=== PATIENT | female | born 1995 | race Caucasian/White ===

== ENCOUNTER 2018-01-13 12:29 | Emergency (ER) | payer MEDICAID, SELFPAY ==
[2018-01-13 12:30] VITALS: BP 119/69; PULSE 79; RESP 16; TEMP 36.6; O2SAT 97; BMI 28.0
--- NOTE | 2018-01-13 13:38 | ED.VISSUMM ---
- ER Visit Summary Date of Service: 01/13/18 Chief Complaint: [Right eye pain] History of Present Illness: The patient is a 22 F [since the emergency department with irritation and drainage in her right eye. It started last night. Was matted shut and she is cleared it for times of group. No acute visual changes. She has no pain. There is no injury. She has no foreign body sensation. No viral symptoms. No fevers or chills. She does not wear contacts or glasses. She did share makeup with her daughter who was recently treated for conjunctivitis.] Physical Examination: [] Afebrile vital signs within acceptable limits Examination of the right eye reveals mild conjunctival injection on the outer rim there is no foreign body eyelid was everted for exam pupils are equal and reactive extraocular eye movements are intact there is no visual owens deficits Test Results: [] Emergency Department Course and Treatment: [She will be given erythromycin ointment. She was given precautions for which to return. She was encouraged to follow-up with an farm consultant of her symptoms do not improve in 3-5 days.] Treatment Plan: [] Disposition: [disCharge Impression: [Right eye conjunctivitis] This note was generated with [employer]bee dictation software. It may contain incorrect words, spelling, and punctuation that were not noted in review of the chart prior to signing ED Disposition - Plan for ED Patient: Chief Complaint: Eye Problem Referrals: Care Physician,No Primary [Primary Care Provider] -
--- NOTE | 2018-01-13 13:41 | ED.DCSUM_ITS ---
- ER Visit Summary Date of Service: 01/13/18 Chief Complaint: [Right eye pain] History of Present Illness: The patient is a 22 F [since the emergency department with irritation and drainage in her right eye. It started last night. Was matted shut and she is cleared it for times of group. No acute visual changes. She has no pain. There is no injury. She has no foreign body sensation. No viral symptoms. No fevers or chills. She does not wear contacts or glasses. She did share makeup with her daughter who was recently treated for conjunctivitis.] Physical Examination: [] Afebrile vital signs within acceptable limits Examination of the right eye reveals mild conjunctival injection on the outer rim there is no foreign body eyelid was everted for exam pupils are equal and reactive extraocular eye movements are intact there is no visual owens deficits Test Results: [] Emergency Department Course and Treatment: [She will be given erythromycin ointment. She was given precautions for which to return. She was encouraged to follow-up with an marketing business analyst of her symptoms do not improve in 3-5 days. ] Treatment Plan: [] Disposition: [disCharge Impression: [Right eye conjunctivitis] This note was generated with [employer] dictation software. It may contain incorrect words, spelling, and punctuation that were not noted in review of the chart prior to signing ED Disposition - Plan for ED Patient: Chief Complaint: Eye Problem Referrals: Care Physician,No Primary [Primary Care Provider] -
--- NOTE | 2018-01-13 13:41 | ED.DEP ---
ED Disposition - Plan for ED Patient: Chief Complaint: Eye Problem Instructions: ED Conjunctivitis Bacterial Prescriptions: Erythromycin Ophthalmic 1 applic OPHTHALMIC 4X/DAY #1 opth.tube Referrals: Efe Reyes MD [STAFF PHYSICIAN] - 3-5 Days
== END 2018-01-13 14:00 | disposition home or self-care (01) ==
PROVIDERS: Emergency Provider Emergency Medicine
DX: H10.9 Unspecified conjunctivitis (principal)
CPT/HCPCS: 99282

== ENCOUNTER 2018-04-08 13:32 | Emergency (ER) | payer SELFPAY ==
[2018-04-08 13:33] VITALS: BP 116/62; PULSE 97; RESP 16; TEMP 37; O2SAT 100; BMI 29.6
[2018-04-08 14:32] LABS: Absolute Lymphocyte Count 2.81 X10^3/ul (0.83-4.51); Absolute Neutrophil Count 5.9 X10^3/uL (2.0-7.7); Basophil# 0.03 X10^3/uL; Basophil% 0.3 % (0-1); Eosinophil# 0.27 X10^3/uL; Eosinophils% 2.8 % (0-5); Hemoglobin 13.9 g/dl (12.0-15.0); Lymphocyte # 2.81 X10^3/ul (4.0); Lymphocyte % 29.4 % (19-41); Mean Corp Hgb Conc 33.1 g/gl (32-36); Mean Corpuscular Hgb 30.3 pg (27.0-32.0); Mean Corpuscular Volume 91.5 fL (81-99); Mean Platelet Vol. 9.9 fl (6.2-12.0); Monocyte# 0.48 X10^3/uL; Neutrophil # 5.94 X10^3/uL (2.7-7.7); Neutrophil % 62.3 % (47-70); Platelet Count 232 K/mm3 (150-450); RBC Distribution Width CV 13.1 % (11.6-14.6); RBC Distribution Width SD 43.3 fl (35.1-43.9); Red Blood Count 4.59 M/mm3 (4.2-5.4); White Blood Count 9.6 K/mm3 (4.4-11.0)
[2018-04-08 14:38] LABS: POSITIVE COUNT NO; POSITIVE DIFFERENTIAL NO; POSITIVE MORPHOLOGY NO
[2018-04-08 14:43] LABS: Anion Gap 5 (5-15); BUN 12 mg/dL (7-18); BUN/Creat Ratio 22.1 RATIO (10-20); Calcium,Total 8.7 mg/dL (8.5-10.1); Chloride 109 mmol/L (98-107); Creatinine, Serum 0.54 mg/dL (0.55-1.02); EST Glomerular Filtration Rate 149 mL/min (>60); Est Glom Filt Rate - Afr Amer 181 mL/min (>60); Estimated Creatinine Clearance 171.55 ml/min; Glucose 80 mg/dL (74-106); Potassium 4.1 mmol/L (3.5-5.1); Sodium Level 139 mmol/L (136-145)
[2018-04-08 14:52] LABS: Pregnancy, Serum, hCG Quali. NEGATIVE Negative (0-9 Nonpreg)
--- NOTE | 2018-04-08 14:52 | RAD_ITS ---
STUDY: X-RAY - ACUTE ABDOMINAL SERIES REASON FOR EXAM: Female, 23 years old. Abdominal cramping. TECHNIQUE: Single view of the chest. Supine, and erect view(s) of the abdomen were obtained. COMPARISON: None. FINDINGS: The lungs are clear and expanded. Normal size heart. Normal mediastinum and navneet. Normal visualized pulmonary arteries. Normal visualized aortic arch and descending thoracic aorta. There is a moderate amount of colonic fecal material. The soft tissue structures of the abdomen and pelvis are unremarkable. Normal visualized osseous structures. RAD/Acute Abdomen Inc Chest IMPRESSION: Moderate amount of fecal material is seen in the colon. Electronically Signed: Manjit Gonzalez MD at 15:18 EDT Tel [phone], Service support ,
[2018-04-08] MEDS: Dicyclomine 10 MG Capsule 20 MG PO (14:56)
--- NOTE | 2018-04-08 14:56 | ED.DCSUM_ITS ---
- ER Visit Summary Date of Service: 04/08/18 Chief Complaint: Abdominal cramping, constipation History of Present Illness: The patient is a 23 F presents to the emergency department with abdominal cramping. Patient states she started a new diet supplement. She has been taking multiple Garcinia tablets. She states she has not been drinking a lot of water. Last night, she began have diffuse abdominal cramping. States it comes in waves. She states he had a difficult time moving her bowels. She denies any fevers or chills. She denies any diarrhea. She has no history of prior abdominal surgery. The pain does not radiate. She has had no urinary difficulties. The pain does not go to her back. She has taken ibuprofen which has significantly improved the pain. Physical Examination: Vital signs reviewed General: Well-nourished, well-developed Head: Normocephalic, atraumatic Eyes: Pupils equal and reactive, extraocular muscles intact Neck, supple, no lymphadenopathy Heart: Regular rate and rhythm Respiratory: No distress, clear bilaterally Abdomen: Soft, nontender, nondistended, no peritoneal signs Back: Nontender Extremities: Nontender, no edema, no cords Skin: Normal color no rash Neuro: Alert and oriented, no focal or lateralizing deficits Test Results: [] Emergency Department Course and Treatment: I cannot re-create the patient's symptoms on examination. She has a benign abdomen. I do feel that a lot of this is because of her new diet supplement. I did obtain plain films and there is a decent amount of stool, but no obstruction or free air. Her labs are unremarkable. I have counseled the patient to stop her diet supplements. Her test is negative. She will be given Bentyl to help with the cramping and started on stool softener. The patient will be discharged home, return 24 hours if symptoms persist or return. Treatment Plan: [] Disposition: Discharge Impression: Abdominal pain 2. Constipation This note was generated with [employer] dictation software. It may contain incorrect words, spelling, and punctuation that were not noted in review of the chart prior to signing ED Disposition - Plan for ED Patient: Chief Complaint: Abd Pain Instructions: ED Constipation Prescriptions: Dicyclomine HCl [Bentyl] 20 mg PO TIDAC #20 cap Docusate Sodium [Colace] 100 mg PO DAILY #20 cap Referrals: Care Physician,No Primary [Primary Care Provider] -
== END 2018-04-08 15:34 | disposition home or self-care (01) ==
PROVIDERS: Emergency Provider Emergency Medicine
DX: R10.9 Unspecified abdominal pain (principal); K59.00 Constipation, unspecified
CPT/HCPCS: 74022; 80048; 84703; 85025; 99284

== ENCOUNTER 2018-04-19 16:49 | Emergency (ER) | payer MEDICAID, SELFPAY ==
[2018-04-19 16:50] VITALS: BP 107/87; PULSE 113; RESP 16; TEMP 36.4; O2SAT 99; BMI 29.5
== END 2018-04-19 17:58 | disposition left against medical advice (07) ==
LOC: ED 18:28
PROVIDERS: Emergency Provider Emergency Medicine
DX: R06.02 Shortness of breath (principal)

== ENCOUNTER 2019-03-03 12:46 | Emergency (ER) | payer MEDICAID, SELFPAY ==
[2019-03-03 12:47] VITALS: BP 133/71; PULSE 107; RESP 17; TEMP 37; O2SAT 98; BMI 34.0
--- NOTE | 2019-03-03 13:02 | EKG12_ITS ---
Test Reason : PALPS Blood Pressure : / mmHG Vent. Rate : 078 BPM Atrial Rate : 078 BPM P-R Int : 164 ms QRS Dur : 076 ms QT Int : 372 ms P-R-T Axes : 059 067 041 degrees QTc Int : 424 ms Normal sinus rhythm Normal ECG Confirmed by FAB CASTELLANOS, DEBBY ([id number]), subeditor DONOVAN WATSON ([id number]) on 03/05/2019 1:19:52 PM Referred By: WILIAN Confirmed By:DEBBY SANON MD
--- NOTE | 2019-03-03 13:03 | ED.VISSUMM ---
- ER Visit Summary Date of Service: 03/03/19 Chief Complaint: Palpitations History of Present Illness: The patient is a 23 F with no primary care physician. She reports that she has been taking Wellbutrin 150 mg once a day for the past 2 weeks. For the past 2 days she has had palpitations. She denies any chest pain or shortness of breath. She reports that she does feel very anxious. She denies any suicidal homicidal ideation. Patient reports that 2 days ago she was nauseated and vomited once. No blood or emesis. She has had an episode of diarrhea then. She had no further vomiting or diarrhea. She denies any abdominal pain. Physical Examination: Vitals: Stable. Afebrile. General: Well-nourished and well-developed. Head: Normocephalic atraumatic. Neck: Supple, no lymphadenopathy. No JVD. Nontender. Cardiovascular: Tachycardic regular rhythm. No murmurs. Respiratory: No respiratory distress. Clear to auscultation bilaterally. Abdominal: Soft, nontender, nondistended, normal bowel sounds. No guarding, rebound, or peritoneal signs. Back: Nontender. Extremities: Nontender, no edema. Skin: Normal color, no rash. Neurologic: Alert and oriented ?3. Cranial nerves II through XII are intact. Normal strength and sensation. Psych: Normal affect. Test Results: EKG is sinus at 70 with no acute changes. test is negative. Chem-7 is more for chloride 109. CBC is normal. TSH is normal. Emergency Department Course and Treatment: Patient had an IV placed. She was given a liter normal saline. She was given Zofran IV. She was given Vistaril p.o. She is resting comfortably. Treatment Plan: Patient instructed to not take any further Wellbutrin. She will be discharged with Zofran. Instructed to follow-up Dr. Márquez in 1-2 days if not improving. Return to the emergency department for any worsening symptoms. Disposition: To home in improved and stable condition. Impression: 1. Adverse reaction to Wellbutrin. 2. Anxiety. This note was generated with [employer] Search[employer] software. It may contain incorrect words, spelling, and punctuation that were not noted in review of the chart prior to signing ED Disposition - Plan for ED Patient: Disposition: Home or Assisted Living Instructions: ED Drug React Adverse Other Prescriptions: Ondansetron [Zofran Odt] 4 mg PO Q8H PRN PRN #10 tablet PRN Reason: Nausea Referrals: Fatou Luis [NON-STAFF] - 1-2 Days if not improving
--- NOTE | 2019-03-03 13:08 | NURSING ---
NO OLD EKGS
[2019-03-03] MEDS: Ondansetron 4 MG/2 ML Vial IV (13:23)
[2019-03-03] MEDS: 0.9% Normal Saline 1,000 ML 1000 ML IV (13:23)
[2019-03-03] MEDS: hydrOXYzine PAM 25 MG Capsule 50 MG PO (13:23)
[2019-03-03 13:36] LABS: Absolute Lymphocyte Count 2.78 X10^3/ul (0.83-4.51); Absolute Neutrophil Count 4.4 X10^3/uL (2.0-7.7); Basophil# 0.02 X10^3/uL; Basophil% 0.3 % (0-1); Eosinophil# 0.16 X10^3/uL; Eosinophils% 2.1 % (0-5); Hematocrit 41.4 % (37-47); Hemoglobin 13.7 g/dl (12.0-15.0); Lymphocyte # 2.78 X10^3/ul (4.0); Lymphocyte % 35.6 % (19-41); Mean Corp Hgb Conc 33.1 g/gl (32-36); Mean Corpuscular Hgb 30.4 pg (27.0-32.0); Mean Platelet Vol. 9.9 fl (6.2-12.0); Monocyte# 0.44 X10^3/uL; Monocyte% 5.6 % (0-10); Neutrophil # 4.39 X10^3/uL (2.7-7.7); Neutrophil % 56.3 % (47-70); Platelet Count 231 K/mm3 (150-450); RBC Distribution Width CV 12.9 % (11.6-14.6); RBC Distribution Width SD 43.2 fl (35.1-43.9); White Blood Count 7.8 K/mm3 (4.4-11.0)
[2019-03-03 13:37] LABS: POSITIVE COUNT NO; POSITIVE DIFFERENTIAL NO; POSITIVE MORPHOLOGY NO
[2019-03-03 13:59] LABS: BUN 11 mg/dL (7-18); Creatinine, Serum 0.59 mg/dL (0.55-1.02); Estimated Creatinine Clearance 180.15 ml/min; Glucose 92 mg/dL (74-106)
[2019-03-03 14:00] LABS: Anion Gap 5 (5-15); BUN/Creat Ratio 18.5 RATIO (10-20); Calcium,Total 8.5 mg/dL (8.5-10.1); Chloride 109 mmol/L (98-107); EST Glomerular Filtration Rate 134 mL/min (>60); Est Glom Filt Rate - Afr Amer 162 mL/min (>60); Potassium 3.7 mmol/L (3.5-5.1); Sodium Level 139 mmol/L (136-145); Thyroid Stim Hormone (TSH) 1.63 uIU/mL (0.358-3.74)
[2019-03-03 14:07] LABS: Pregnancy, Serum, hCG Quali. NEGATIVE Negative (0-9 Nonpreg)
[2019-03-03 15:05] VITALS: BP 106/73; PULSE 87; RESP 18; O2SAT 98
== END 2019-03-03 15:07 | disposition home or self-care (01) ==
LOC: ED 13:52
PROVIDERS: Emergency Provider Emergency Medicine
DX: R00.2 Palpitations (principal); T43.295A Adverse effect of other antidepressants, initial encounter; Y92.9 Unspecified place or not applicable; F41.9 Anxiety disorder, unspecified; F32.9 Major depressive disorder, single episode, unspecified; Z72.0 Tobacco use
CPT/HCPCS: 80048; 84443; 84703; 85025; 93005; 96361; 96374; 99285; J7030; A4216; J2405

== ENCOUNTER 2019-03-06 11:21 | Emergency (ER) | payer MEDICAID, SELFPAY ==
[2019-03-06 11:22] VITALS: BP 122/79; PULSE 129; RESP 14; TEMP 36.9; O2SAT 95; BMI 33.1
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
--- NOTE | 2019-03-06 11:40 | ED.VISSUMM ---
- ER Visit Summary Date of Service: 03/06/19 Chief Complaint:. Suicidal ideation History of Present Illness: The patient is a 23 F who presents with suicidal ideations that have been getting worse over the past 2 days. Patient denies any specific plan but states she keeps having suicidal thoughts. Patient states she has a history of suicide attempts in the past by cutting her wrists. Patient states she has not been eating recently. She denies any visual or auditory hallucinations. Patient states she was scheduled to see a psychiatrist 2 days ago but it had to be rescheduled until next week. Physical Examination: Vital signs are stable except for tachycardia of 129. Patient is afebrile. Patient is in no acute distress. Patient has a depressed mood and a flat affect. Patient is tearful on exam. Cranial nerves II through XII are intact. There are no focal motor or sensory deficits noted. Oral mucosa is pink and moist. Neck is supple. Trachea is midline. There is no JVD noted. Heart was regular and tachycardic. Lungs are clear and equal bilaterally. Abdomen is soft and nontender. The remaining physical exam is within normal limits. Test Results: CBC, basic metabolic profile, urinalysis, urine tox screen, and serum hCG were obtained. Urine tox screen was positive for methamphetamines and cannabinoids. The remaining labs are within normal limits. Emergency Department Course and Treatment: Suicide precautions were maintained. Crisis counseling was in to evaluate the patient. Crisis felt that the patient will be better with inpatient treatment. She is attempting to ice the patient at [facility]. Disposition: Transfer to psychiatric facility. Impression: 1. Depression with suicidal ideation This note was generated with [employer] dictation software. It may contain incorrect words, spelling, and punctuation that were not noted in review of the chart prior to signing ED Disposition - Plan for ED Patient: Referrals: Care Physician,No Primary [Primary Care Provider] -
--- NOTE | 2019-03-06 11:44 | ED.DCSUM_ITS ---
- ER Visit Summary Date of Service: 03/06/19 Chief Complaint:. Suicidal ideation History of Present Illness: The patient is a 23 F who presents with suicidal ideations that have been getting worse over the past 2 days. Patient denies any specific plan but states she keeps having suicidal thoughts. Patient states she has a history of suicide attempts in the past by cutting her wrists. Patient states she has not been eating recently. She denies any visual or auditory hallucinations. Patient states she was scheduled to see a psychiatrist 2 days ago but it had to be rescheduled until next week. Physical Examination: Vital signs are stable except for tachycardia of 129. Patient is afebrile. Patient is in no acute distress. Patient has a depressed mood and a flat affect. Patient is tearful on exam. Cranial nerves II through XII are intact. There are no focal motor or sensory deficits noted. Oral mucosa is pink and moist. Neck is supple. Trachea is midline. There is no JVD noted. Heart was regular and tachycardic. Lungs are clear and equal bilaterally. Abdomen is soft and nontender. The remaining physical exam is within normal limits. Test Results: CBC, basic metabolic profile, urinalysis, urine tox screen, and serum hCG were obtained. Urine tox screen was positive for methamphetamines and cannabinoids. The remaining labs are within normal limits. Emergency Department Course and Treatment: Suicide precautions were maintained. Crisis counseling was in to evaluate the patient. Crisis felt that the patient will be better with inpatient treatment. She is attempting to ice the patient at [facility]. Disposition: Transfer to psychiatric facility. Impression: 1. Depression with suicidal ideation This note was generated with xCloud dictation software. It may contain incorrect words, spelling, and punctuation that were not noted in review of the chart prior to signing ED Disposition - Plan for ED Patient: Referrals: Care Physician,No Primary [Primary Care Provider] -
[2019-03-06 11:57] LABS: Amphetamine Urine VISTA NEGATIVE (<1000 ng/mL); Barbiturate Urine VISTA NEGATIVE (< 200 ng/mL); Benzodiazepine Urine VISTA NEGATIVE (< 200 ng/mL); Cocaine Urine VISTA NEGATIVE (< 300 ng/mL); Ecstacy Urine VISTA POSITIVE (< 500 ng/mL); Methadone Urine VISTA NEGATIVE (< 300 ng/mL); PCP Urine VISTA NEGATIVE (< 25 ng/mL); THC Urine VISTA POSITIVE (< 50 ng/mL); Vista UDS pH Range 5
[2019-03-06 11:59] LABS: Absolute Lymphocyte Count 1.51 X10^3/ul (0.83-4.51); Basophil# 0.01 X10^3/uL; Basophil% 0.1 % (0-1); Eosinophil# 0.01 X10^3/uL; Eosinophils% 0.1 % (0-5); Hemoglobin 14.1 g/dl (12.0-15.0); Lymphocyte # 1.51 X10^3/ul (4.0); Mean Corp Hgb Conc 34.4 g/gl (32-36); Mean Corpuscular Hgb 30.6 pg (27.0-32.0); Mean Corpuscular Volume 88.9 fL (81-99); Mean Platelet Vol. 9.8 fl (6.2-12.0); Monocyte# 0.31 X10^3/uL; Monocyte% 2.9 % (0-10); Neutrophil # 8.95 X10^3/uL (2.7-7.7); Neutrophil % 82.6 % (47-70); POSITIVE COUNT NO; POSITIVE DIFFERENTIAL NO; POSITIVE MORPHOLOGY NO; Platelet Count 255 K/mm3 (150-450); RBC Distribution Width CV 12.4 % (11.6-14.6); RBC Distribution Width SD 39.9 fl (35.1-43.9); Red Blood Count 4.61 M/mm3 (4.2-5.4); White Blood Count 10.8 K/mm3 (4.4-11.0)
[2019-03-06 12:07] LABS: Anion Gap 9 (5-15); BUN 11 mg/dL (7-18); BUN/Creat Ratio 18.9 RATIO (10-20); Calcium,Total 8.8 mg/dL (8.5-10.1); Chloride 109 mmol/L (98-107); Creatinine, Serum 0.58 mg/dL (0.55-1.02); EST Glomerular Filtration Rate 136 mL/min (>60); Est Glom Filt Rate - Afr Amer 165 mL/min (>60); Estimated Creatinine Clearance 178.94 ml/min; Glucose 95 mg/dL (74-106); Potassium 3.7 mmol/L (3.5-5.1); Sodium Level 141 mmol/L (136-145)
--- NOTE | 2019-03-06 12:12 | ED.RN ---
CRISIS IS AWARE THAT PT IS HERE
[2019-03-06 12:15] LABS: Pregnancy, Serum, hCG Quali. NEGATIVE Negative (0-9 Nonpreg)
--- NOTE | 2019-03-06 12:16 | ED.RN ---
SPOKE WITH BEHZAD - DUNG - SHE TOOK DOWN THE PTS INFORMATION AND WILL CALL US WITH A TIME THAT SOMEONE WILL BE OVER TO EVAL
[2019-03-06 12:17] LABS: Red Blood Cells-Urine 0 SEEN /hpf (0-5)
[2019-03-06 12:22] LABS: Color, Urine Yellow (Yellow); Glucose, Dipstick Normal (Normal); Ketone-Dipstick 50 mg/dl (Negative); Leukocyte Esterase-Dipstick 100 /ul (Negative); Nitrite-Dipstick Negative (Negative); Occult Blood-Urine Negative /ul (Negative); Protein-Dipstick Negative (Negative); Urine Bilirubin Dipstick Negative (Negative); Urine Clarity Sl. Cloudy (Clear); Urine Urobilinogen Normal (Normal)
[2019-03-06 12:25] LABS: Squamous Epithelial Cells - UA 0-5 SEEN /hpf (5-10); White Blood Cells 0-5 SEEN /hpf (0-5)
[2019-03-06 12:26] LABS: Bacteria 1+ /hpf (None Seen); Mucous, Urine RARE /hpf (<or=2+)
--- NOTE | 2019-03-06 12:41 | ED.RN ---
CRISES CALLED. STATES SOMEONE WILL BE DOWN IN AN HOUR
[2019-03-06 13:00] VITALS: BP 118/72; PULSE 80; RESP 16; O2SAT 97
[2019-03-06 14:55] VITALS: RESP 16
[2019-03-06] MEDS: Acetaminophen 500 MG Tablet 1000 MG PO (15:19)
--- NOTE | 2019-03-06 15:44 | ED.RN ---
PER BEHZAD WITH CRISIS THEY ARE WORKING ON PLACEMENT WITH [facility]
--- NOTE | 2019-03-06 17:28 | ED.RN ---
RAJAN WITH [facility] CALLED TO SPEAK WITH THIS PTS NURSE. RN UMANG WAS UNAVAILABLE AT THE TIME SO I TOOK DOWN HIS NAME AND NUMBER AND REPORTED IT OFF TO UMANG THAT SHE NEEDS TO CALL AND SPEAK WITH HIM
[2019-03-06 18:00] VITALS: BP 112/65; PULSE 72; RESP 16; TEMP 36.8; O2SAT 96
[2019-03-06 18:28] VITALS: BP 112/65; PULSE 72; RESP 16; TEMP 36.8; O2SAT 96
== END 2019-03-06 19:08 ==
LOC: ED 11:49
PROVIDERS: Emergency Provider Emergency Medicine
DX: F32.9 Major depressive disorder, single episode, unspecified (principal); R45.851 Suicidal ideations; R00.0 Tachycardia, unspecified; R11.2 Nausea with vomiting, unspecified; M54.9 Dorsalgia, unspecified; R00.2 Palpitations; Z72.0 Tobacco use; Z91.5 Personal history of self-harm; Z86.718 Personal history of other venous thrombosis and embolism; Z86.711 Personal history of pulmonary embolism
CPT/HCPCS: 80048; 80307; 80320; 81001; 84703; 85025; 99284; G0480

== ENCOUNTER 2019-08-20 18:04 | Emergency (ER) | payer MEDICAID, SELFPAY ==
[2019-08-20 18:05] VITALS: BP 124/78; PULSE 104; RESP 18; TEMP 36.6; O2SAT 99; BMI 34.7
--- NOTE | 2019-08-20 18:34 | EKG12_ITS ---
Test Reason : CP/SOB Blood Pressure : / mmHG Vent. Rate : 080 BPM Atrial Rate : 080 BPM P-R Int : 164 ms QRS Dur : 080 ms QT Int : 366 ms P-R-T Axes : 056 061 042 degrees QTc Int : 422 ms Normal sinus rhythm Normal ECG Confirmed by RODERICK CASTELLANOS, PHILOMENA ([id number]), senior technical editor CHECO JOHN ([id number]) on 08/25/2019 1:33:29 PM Referred By: GLORIA Confirmed By:RODNEY VAUGHN MD
--- NOTE | 2019-08-20 19:00 | RAD_ITS ---
STUDY: X-RAY CHEST REASON FOR EXAM: Female, 24 years old. Dyspnea. Chest pain. TECHNIQUE: PA and lateral views of the chest. COMPARISON: Acute abdominal series with chest, April 08, 2018. FINDINGS: The lungs are clear and expanded. There is no demonstrated pleural abnormality. Normal size heart. Normal mediastinum and navneet. Normal visualized pulmonary arteries. Normal visualized aortic arch and descending thoracic aorta. Normal visualized thoracic spine. Normal visualized ribs, clavicles, and shoulders. There is no demonstrated abnormality of the visualized soft tissue structures of the upper abdomen. RAD/Chest PA and Lateral IMPRESSION: No acute cardiopulmonary disease or interval change. Electronically Signed: Riley Castañeda DO at 19:32 EDT Tel [phone], Service support ,
[2019-08-20 20:00] LABS: D-Dimer Quantitative (DVT/PE) < 0.27 FEU/ug/m (0.27-0.49)
--- NOTE | 2019-08-20 20:05 | ED.DCSUM_ITS ---
- ER Visit Summary Date of Service: 08/20/19 Chief Complaint: [Shortness of breath] History of Present Illness: The patient is a 24 F [presents the emergency department shortness of breath started 3 days ago. Patient states that it is been intermittent and usually worse at night. Patient has not had a while at work until today. She denies any chest pain although she describes maybe some mild tightness throughout. Patient is concerned because she has had history of pulmonary emboli in the past and is not currently anticoagulated. Patient denies any recent travel or surgery. She does have a history of anxiety and panic attacks. Patient also recently started on risperidone a week ago when she thinks may be these might be symptoms related to that. She denies any fever or cough.] Physical Examination: [HEENT-PERRLA, EOMI. Cranial nerves II through XII grossly intact. TMs clear. Mucous membranes moist. No adenopathy. Cardiovascular-regular rate and rhythm without murmur or ectopy Lungs-clear to auscultation, chest wall stable without crepitus or subcu emphysema Abdomen-normoactive bowel sounds, soft, nontender, no rebound or rigidity, no peritoneal signs. Extremities-intact ?4, normal range of motion, normal pulses, atraumatic] Test Results: [D-dimer is less than 0.27. Chest x-ray showed nothing acute.] Emergency Department Course and Treatment: [] Treatment Plan: [Will be given a prescription for Ativan as needed for anxiety. Patient advised to discuss her risperidone with her psychiatrist.] Disposition: [Discharged home in stable condition] Impression: [Dyspnea Anxiety reaction] This note was generated with Virtual[employer] dictation software. It may contain incorrect words, spelling, and punctuation that were not noted in review of the chart prior to signing ED Disposition - Plan for ED Patient: Referrals: Care Physician,No Primary [Primary Care Provider] -
--- NOTE | 2019-08-20 20:07 | ED.DEP ---
ED Disposition - Plan for ED Patient: Instructions: Panic Attack, ED Dyspnea Prescriptions: Lorazepam [Ativan] 1 mg PO TID PRN #10 tab PRN Reason: Anxiety Prescription Printed Referrals: Care Physician,No Primary [Primary Care Provider] - Jermain Ribeiro MD [STAFF PHYSICIAN] - 5-7 Days
[2019-08-20 20:21] VITALS: PULSE 74; RESP 15; O2SAT 98
--- NOTE | 2019-08-20 20:21 | ED.RN ---
PT GIVEN WRITTEN AND VERBAL DISCHARGE INSTRUCTIONS AND HOME GONG PRESCRIPTIONS. PT EDUCATED NOT TO DRIVE WHEN TAKING NARCOTIC MEDICATION. PT VERBALIZES UNDERSTANDING AND DENIES ANY FURTHER QUESTION. IV D/C AND COVERED WITH 2X2 GAUZE AND PAPER TAPE. ANGIOCATH INTACT. PT DRESSES SELF AND AMBULATES OUT OF DEPT INDEPENDENTLY.
== END 2019-08-20 20:23 | disposition home or self-care (01) ==
LOC: ED 19:11
PROVIDERS: Emergency Provider Emergency Medicine
DX: R06.00 Dyspnea, unspecified (principal); F41.1 Generalized anxiety disorder; F41.0 Panic disorder [episodic paroxysmal anxiety]; Z72.0 Tobacco use; Z79.899 Other long term (current) drug therapy; Z86.711 Personal history of pulmonary embolism
CPT/HCPCS: 71046; 85379; 93005; 99283; A4216

== ENCOUNTER 2019-08-24 20:20 | Emergency (ER) | payer MEDICAID, SELFPAY ==
[2019-08-24 20:21] VITALS: BP 114/65; PULSE 113; RESP 16; TEMP 36.6; O2SAT 98; BMI 34.1
--- NOTE | 2019-08-24 21:04 | ED.DCSUM_ITS ---
- ER Visit Summary Date of Service: 08/24/19 Chief Complaint: Feels short of breath History of Present Illness: The patient is a 24 F history of anxiety and panic attacks and bipolar. Prior DVT and PE several years ago. Patient was seen in the emergency department several days ago complaint shortness of breath at that time was felt to be anxiety. He had a negative chest x-ray and a negative d-dimer. She thinks it secondary to her Risperdal which she has stopped. She denies any fever or chills. No chest pain. No hemoptysis. No recent travel, surgery or immobilization. No leg pain or swelling. No calf pain. Physical Examination: Well-appearing young female no acute distress. Vital signs stable afebrile pulse ox 90% on room air no signs of hypoxia. HEENT exam unremarkable tender. Lungs clear to auscultation bilaterally. Respiratory rate about 16. Heart regular rhythm rate about 90 on my exam. No murmur. Abdomen soft nontender normal bowel sounds no peritoneal signs. Extremities moves all 4. Neurovascular intact. Equal symmetrical radial pulses. Calves are nontender without edema or cords. Back nontender. Neurologically she is awake alert no focal deficits. Clinically she is mildly anxious. Test Results: I reviewed the patient's recent test. She needs no work-up tonight. Emergency Department Course and Treatment: Dyspnea secondary to anxiety. Discussed with patient about restarting Risperdal she thinks that the cause of her shortness of breath and does not want to take it. She has an appointment to follow-up with counseling center tomorrow. Treatment Plan: Follow-up with counseling center. Restart some type of antianxiety medication. Disposition: Discharge Impression: Subjective dyspnea secondary to anxiety This note was generated with [id number] dictation software. It may contain incorrect words, spelling, and punctuation that were not noted in review of the chart prior to signing ED Disposition - Plan for ED Patient: Referrals: Care Physician,No Primary [Primary Care Provider] -
--- NOTE | 2019-08-24 21:06 | ED.DEP ---
ED Disposition - Plan for ED Patient: Disposition: Home or Assisted Living Instructions: Anxiety Reaction Referrals: Counseling,Center [GROUP OF PHYSICIANS] - Keep Cristobal appointment Additional Instructions: Follow-up with counseling center. Restart some type of antianxiety medication.
[2019-08-24 21:16] VITALS: BP 115/66; PULSE 97; RESP 16; O2SAT 97
== END 2019-08-24 21:16 | disposition home or self-care (01) ==
PROVIDERS: Emergency Provider Emergency Medicine
DX: R06.00 Dyspnea, unspecified (principal); F41.9 Anxiety disorder, unspecified; F31.9 Bipolar disorder, unspecified; Z86.711 Personal history of pulmonary embolism; Z86.718 Personal history of other venous thrombosis and embolism; Z79.899 Other long term (current) drug therapy; Z72.0 Tobacco use
CPT/HCPCS: 99282

== ENCOUNTER 2019-12-07 09:40 | Emergency (ER) | payer SELFPAY ==
[2019-12-07 09:41] VITALS: BP 144/90; PULSE 121; RESP 17; TEMP 37.4; O2SAT 96; BMI 33.3
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
== END 2019-12-07 10:57 | disposition home or self-care (01) ==
LOC: ED 10:08
PROVIDERS: Emergency Provider Emergency Medicine
DX: S02.2XXA Fracture of nasal bones, initial encounter for closed fracture (principal); S02.5XXA Fracture of tooth (traumatic), initial encounter for closed fracture; S00.83XA Contusion of other part of head, initial encounter; S05.12XA Contusion of eyeball and orbital tissues, left eye, initial encounter; S05.11XA Contusion of eyeball and orbital tissues, right eye, initial encounter; Y04.0XXA Assault by unarmed brawl or fight, initial encounter; Y93.9 Activity, unspecified; Y92.9 Unspecified place or not applicable; Y99.9 Unspecified external cause status; F31.9 Bipolar disorder, unspecified; Z72.0 Tobacco use; Z23 Encounter for immunization
CPT/HCPCS: 70450; 99282

== ENCOUNTER 2020-06-11 15:10 | Emergency (ER) | payer SELFPAY ==
[2020-06-11 15:11] VITALS: BP 122/70; PULSE 96; RESP 16; TEMP 36.5; O2SAT 96; BMI 36.3
[2020-06-11 15:21] VITALS: BP 122/70; PULSE 96; RESP 16; TEMP 36.5; O2SAT 96
--- NOTE | 2020-06-11 15:30 | ED.DCSUM_ITS ---
History of Present Illness Chief Complaint: Wound Informant: Patient Narrative: Patient is a 25-year-old previous healthy female who presents to the emergency department for multiple complaints. Over the past week she noticed to yurok lesions that appeared on her neck and face. She also noticed one on her vaginal region. She has been having vaginal discharge that has been white. She has been having some burning with urination. Denies any hematuria. She did have a recent new partner about 1 month ago. She did have unprotected intercourse at that time. She does have some concern for STD. She denies being . Her last menstrual period was on the first of this month. She has a known prolapsed uterus. She denies any significant abdominal pain no nausea/vomiting. She denies any fevers or chills. No sore throat. No cough, cold, congestion. She believes that she has ringworm as to other people in her family have similar symptoms with that. She has been using alcohol wipes as well as peroxide which has not been helping. Past Medical History - Allergies and Home Meds Allergies/Adverse Reactions: Allergies No Known Allergies Allergy (Verified 06/11/20 15:12) Primary Care Physician: Anastasiia Grant DO [STAFF PHYSICIAN] - 3-5 Days Care Physician,No Primary [Primary Care Provider] - Smoking Status: Current every day smoker Alcohol: None Drugs: Marijuana Review of Systems All systems negative except as indicated General: Denies: Chills, Fever, Sweats Eyes: Denies: Visual changes - bilaterally, Diplopia ENT: Denies: Rhinorrhea, Sore throat Cardiovascular: Denies: Chest pain, Palpitations Respiratory: Denies: Dyspnea, Cough, Dyspnea on exertion Gastrointestinal: Denies: Abdominal pain, Nausea, Vomiting, Diarrhea, Melena, Hematochezia Genitourinary: Reports: Dysuria. Denies: Hematuria, Frequency Musculoskeletal: Denies: Back pain, Extremity Pain Skin: Reports: Rash. Denies: Wounds Neurological: Denies: Headache, Weakness, Numbness Physical Exam Vital Signs/Narrative: Vital Signs Temp Pulse Resp BP Pulse Ox 06/11/20 15:21 97.7 F L 96 16 122/70 H 96 06/11/20 15:11 97.7 F L 96 16 122/70 H 96 Inital Vital Signs reviewed: Yes General: Well nourished, Well developed, No Acute Distress Head: Normocephalic, Atraumatic Eyes: Perrl, EOMI ENT: Moist mucous membranes, No rhinorrhea Neck: Supple, Nontender Cardiovascular: Regular rate, Regular rhythm, No murmurs Respiratory: No distress, CTA bilaterally, Chest nontender Abdomen: Soft, Nontender, Nondistended, Normal bowel sounds : - - Pelvic exam chaperoned by nurse. There was some white discharge. Just above the pubic symphysis there is another circular lesion present. No obvious external labial lesions. No significant tenderness with speculum insertion. Back: Nontender, Normal Inspection Extremities: Nontender, No edema Skin: Normal color, Rash - She has 2 circular lesions, one on the neck, one on the chin. The one on the chin has a diameter of 1/2 cm, the one on the neck is a diameter of 2 cm. No overlying erythema, warmth or tenderness. Neurological: Alert, Oriented x3, Normal Strength, Normal Sensation Psychological: Normal affect, Normal Mood Diagnostic/Tx/Re-eval - Medical Decision Making Patient presents to the emergency department for suspected ringworm. She is also concerned for STD she is been having vaginal discharge. We will check a urine, urine and do an STD panel. Will treat both the tinea infection as well as the concern for STD. Patient's physical exam did not show any evidence of PID. We will treat her as ringworm with clotrimazole cream. She understands that this might not treat your infection and may need to be switched onto an antifungal oral medication. We did treat her prophylactically for STDs. Gonorrhea and Chlamydia is pending. No evidence of trichomonas on wet mount. At this time will discharge home in stable condition. Culture being sent for the urine but no evidence of obvious UTI now. Warning signs and symptoms for which to return to the emergency department occluding developing any systemic symptoms are reviewed. She understands and is agreeable to this plan. She does not have a PCP to follow-up with so she was given a provider from the doc list. ED Disposition - Plan for ED Patient: Disposition: Home or Assisted Living Diagnosis: Ringworm of body, Vaginal discharge Instructions: ED DERMATITIS Ringworm skin Prescriptions: Clotrimazole [Lotrimin] 1 applicatio TOPICAL BID 28 Days #1 tube Transmission Status: Received by [facility] #30 Referrals: Care Physician,No Primary [Primary Care Provider] - Anastasiia Grant DO [STAFF PHYSICIAN] - 3-5 Days
[2020-06-11 16:01] LABS: Bacteria 0 SEEN /hpf (None Seen); Mucous, Urine 0 SEEN /hpf (<or=2+)
[2020-06-11 16:10] LABS: Color, Urine Yellow (Yellow); Glucose, Dipstick Normal (Normal); Ketone-Dipstick Negative (Negative); Leukocyte Esterase-Dipstick 500 /ul (Negative); Nitrite-Dipstick Negative (Negative); Occult Blood-Urine 25 /ul (Negative); Protein-Dipstick Negative (Negative); Urine Bilirubin Dipstick Negative (Negative); Urine Clarity Sl. Cloudy (Clear); Urine Urobilinogen Normal (Normal)
[2020-06-11 16:28] LABS: Internal QC Validated? YES +Cl - CLEAR BKGD; Pregnancy, Urine Negative Negative
[2020-06-11 16:38] LABS: Red Blood Cells-Urine 0-5 SEEN /hpf (0-5); Squamous Epithelial Cells - UA 0-5 SEEN /hpf (5-10); White Blood Cells 10-25 SEEN /hpf (0-5)
[2020-06-11 16:39] LABS: Amorphous Sediment 1+ URATE
[2020-06-11] MEDS: Azithromycin 250 MG Tablet 1000 MG PO (17:21)
[2020-06-11] MEDS: Ceftriaxone 500 MG Vial 250 MG IM (17:21)
[2020-06-11 17:25] VITALS: BP 122/70; PULSE 96; RESP 16; TEMP 36.5; O2SAT 96
[2020-06-11 18:56] LABS: Chlamydia Trachomatis by PCR Negative (Negative); Neisserai gonorrhoeae by PCR Negative (Negative); Probe Check PASS; Sample Adequacy Control PASS; Specimen Processing Control PASS
== END 2020-06-11 17:25 | disposition home or self-care (01) ==
PROVIDERS: Emergency Provider Emergency Medicine
DX: B35.4 Tinea corporis (principal); N89.8 Other specified noninflammatory disorders of vagina; R30.9 Painful micturition, unspecified; F17.200 Nicotine dependence, unspecified, uncomplicated
CPT/HCPCS: 81001; 81025; 87086; 87088; 87210; 87491; 87591; 96372; 99283

== ENCOUNTER 2020-06-26 19:43 | Emergency (ER) | payer SELFPAY ==
[2020-06-26 19:43] VITALS: BP 126/76; PULSE 93; RESP 18; TEMP 37.1; O2SAT 97; BMI 32.3
--- NOTE | 2020-06-26 19:53 | ED.VISSUMM ---
- ER Visit Summary Date of Service: 06/26/20 Chief Complaint: Dental pain History of Present Illness: The patient is a 25 F with right mandibular dental pain. Physical Examination: Patient has a small abscess at her right mandibular molars. No tongue elevation or trismus. Airway is intact. Skin is normal. Test Results: None indicated Emergency Department Course and Treatment: Patient declined I&D. She will be treated with Pen-Vee K and naproxen. Treatment Plan: As above, follow-up with dental Disposition: Discharge Impression: Dental pain This note was generated with [employer] dictation software. It may contain incorrect words, spelling, and punctuation that were not noted in review of the chart prior to signing ED Disposition - Plan for ED Patient: Disposition: Home or Assisted Living Instructions: ED Tooth Pain Prescriptions: Naproxen [Naprosyn] 500 mg PO BID PRN #20 tab Prescription Printed Penicillin V Potassium 500 mg PO 4X/DAY #40 tab Prescription Printed
[2020-06-26] MEDS: Penicillin Vk 250 MG Tablet 500 MG PO (20:15)
[2020-06-26] MEDS: Naproxen 500 MG Tablet PO (20:15)
== END 2020-06-26 20:19 | disposition home or self-care (01) ==
PROVIDERS: Emergency Provider Emergency Medicine
DX: K08.89 Other specified disorders of teeth and supporting structures (principal); K04.7 Periapical abscess without sinus; Z72.0 Tobacco use
CPT/HCPCS: 99283

== ENCOUNTER 2020-07-01 18:46 | Emergency (ER) | payer SELFPAY ==
[2020-07-01 18:47] VITALS: BP 100/67; PULSE 108; RESP 18; TEMP 36.4; O2SAT 96; BMI 32.5
[2020-07-01 20:25] VITALS: BP 131/67; PULSE 91; RESP 15; O2SAT 97
--- NOTE | 2020-07-01 20:28 | RAD_ITS ---
STUDY: X-RAY CHEST REASON FOR EXAM: Female, 25 years old. Chest pain beginning 4 days ago. TECHNIQUE: Single AP portable view of the chest. COMPARISON: 08/20/2019. FINDINGS: The lungs are clear and expanded. There is no demonstrated pleural abnormality. Normal size heart. Normal mediastinum and navneet. Normal visualized pulmonary arteries. Normal visualized aortic arch and descending thoracic aorta. Normal visualized thoracic spine. Normal visualized ribs, clavicles, and shoulders. There is no demonstrated abnormality of the visualized soft tissue structures of the upper abdomen. RAD/Chest 1 View (Portable) IMPRESSION: Normal x-ray examination of the chest. Electronically Signed: Riley Castañeda DO at 21:20 EDT Tel [phone], Service support ,
--- NOTE | 2020-07-01 20:29 | EKG12_ITS ---
Test Reason : DYSRHYTHMIA Blood Pressure : / mmHG Vent. Rate : 080 BPM Atrial Rate : 080 BPM P-R Int : 166 ms QRS Dur : 078 ms QT Int : 354 ms P-R-T Axes : 054 057 039 degrees QTc Int : 408 ms Normal sinus rhythm Normal ECG Confirmed by RODERICK CASTELLANOS, PHILOMENA ([id number]), writer editor DONOVAN WATSON ([id number]) on 07/05/2020 9:39:19 AM Referred By: BRIDGET Confirmed By:RODNEY VAUGHN MD
--- NOTE | 2020-07-01 20:29 | ED.VIS.GEN ---
History of Present Illness Chief Complaint: Chest Pain Informant: Patient Onset: Days Context: Gradual Onset Timing: Intermittent Current Severity: - Narrative: Patient presents with intermittent chest pain for the past 4 days. She will also get leg cramps. She is a history of DVT and PE shortly after she was 4 years ago. She is no longer on anticoagulants. Patient states pain will come on intermittently, not associated with exertion. Symptoms will last anywhere from 20 minutes to 1 hour and then resolved. She also complains of pain to the right side of her head. - Past Medical History (1) DVT (deep venous thrombosis) Status: Resolved (2) Pulmonary embolism Status: Resolved Past Medical History - Allergies and Home Meds Allergies/Adverse Reactions: Allergies No Known Allergies Allergy (Verified 07/01/20 18:50) Primary Care Physician: Care Physician,No Primary [Primary Care Provider] - Prior records reviewed: Yes Lives: With Family Smoking Status: Current every day smoker Review of Systems General: Denies: Chills, Fever Eyes: Denies: Visual changes - bilaterally ENT: Denies: Bilateral ear pain Cardiovascular: Reports: Chest pain. Denies: Palpitations Respiratory: Reports: Dyspnea. Denies: - Gastrointestinal: Denies: Abdominal pain, Nausea, Diarrhea Musculoskeletal: Reports: Swelling, Extremity Pain Skin: Denies: Rash Neurological: Reports: Headache Hematologic: Denies: Easy bruising Allergy: Denies: Uticaria Physical Exam Vital Signs/Narrative: Vital Signs Temp Pulse Resp BP Pulse Ox 07/01/20 20:25 91 15 131/67 H 97 07/01/20 18:47 97.6 F L 108 H 18 100/67 96 Inital Vital Signs reviewed: Yes General: Well nourished, Well developed Head: Normocephalic ENT: Moist mucous membranes Neck: Supple Cardiovascular: Regular rate, Regular rhythm Respiratory: No distress, CTA bilaterally Abdomen: Soft, Nontender Extremities: Nontender, Edema - 1+ bilateral lower extremity edema. Skin: Normal color Neurological: Alert, Oriented x3 Psychological: Normal affect Diagnostic/Tx/Re-eval Impressions Chest X-Ray 07/01/20 20:28 IMPRESSION: Normal x-ray examination of the chest. Electronically Signed: Riley Castañeda DO at 21:20 EDT Tel [phone], Service support , 07/01/20 20:28 Chest 1 View (Portable) [RAD] Stat Laboratory Results 07/01/20 07/01/20 07/01/20 20:55 20:55 20:55 WBC 9.3 RBC 4.60 Hgb 14.1 Hct 42.5 MCV 92.4 MCH 30.7 MCHC 33.2 RDW Std Deviation 41.8 RDW Coeff of Breanna 12.3 Plt Count 285 MPV 10.0 Immature Gran % (Auto) 0.300 Neut % (Auto) 71.5 H Lymph % (Auto) 22.8 [place] % (Auto) 3.7 Eos % (Auto) 1.5 Baso % (Auto) 0.2 Absolute Neuts (auto) 6.6 Absolute Lymphs (auto) 2.12 Nucleated RBC % 0 D-Dimer Quant (PE/DVT) 0.39 Sodium 141 Potassium 3.8 Chloride 111 H Carbon Dioxide 27.0 Anion Gap 3 L BUN 15 Creatinine 0.55 Estim Creat Clear Calc 181.76 Est GFR (MDRD) Af Amer 175 Est GFR (MDRD) Non-Af 144 BUN/Creatinine Ratio 27.3 H Glucose 92 Calcium 9.1 Troponin I < 0.015 Serum , Qual 07/01/20 20:55 WBC RBC Hgb Hct MCV MCH MCHC RDW Std Deviation RDW Coeff of Breanna Plt Count MPV Immature Gran % (Auto) Neut % (Auto) Lymph % (Auto) [place] % (Auto) Eos % (Auto) Baso % (Auto) Absolute Neuts (auto) Absolute Lymphs (auto) Nucleated RBC % D-Dimer Quant (PE/DVT) Sodium Potassium Chloride Carbon Dioxide Anion Gap BUN Creatinine Estim Creat Clear Calc Est GFR (MDRD) Af Amer Est GFR (MDRD) Non-Af BUN/Creatinine Ratio Glucose Calcium Troponin I Serum , Qual NEGATIVE - EKG Initial EKG Interpretation: Sinus Rhythm - Sinus 80 with no acute ischemia. - Medical Decision Making Patient is given IV fluids here. On repeat evaluation she is resting comfortably. Blood work reveals no evidence of any heart damage or blood clots. She is encouraged to increase fluids as this may help with her leg cramps. She is referred to Dr. Zhao next on the no doc list. ED Disposition - Plan for ED Patient: Disposition: Home or Assisted Living Diagnosis: Atypical chest pain, Muscle cramps Instructions: ED Chest Pain NonCardiac, ED SPASM Muscle Referrals: Jordan Zhao MD [STAFF PHYSICIAN] - 1-2 Weeks
[2020-07-01] MEDS: 0.9% Normal Saline 1,000 ML 150 ML IV (21:00)
[2020-07-01 21:05] LABS: Absolute Lymphocyte Count 2.12 X10^3/uL (0.83-4.51); Absolute Neutrophil Count 6.6 X10^3/uL (2.0-7.7); Basophil# 0.02 X10^3/uL; Basophil% 0.2 % (0-1); Eosinophil# 0.14 X10^3/uL; Eosinophils% 1.5 % (0-5); Hematocrit 42.5 % (37-47); Hemoglobin 14.1 g/dL (12.0-15.0); Lymphocyte # 2.12 X10^3/ul (4.0); Lymphocyte % 22.8 % (19-41); Mean Corp Hgb Conc 33.2 g/dL (32-36); Mean Corpuscular Hgb 30.7 pg (27.0-32.0); Mean Corpuscular Volume 92.4 fL (81-99); Monocyte# 0.34 X10^3/uL; Monocyte% 3.7 % (0-10); NRBC Flagged by Analyzer 0 % (0-5); Neutrophil # 6.64 X10^3/uL (2.7-7.7); Neutrophil % 71.5 % (47-70); Platelet Count 285 K/mm3 (150-450); RBC Distribution Width CV 12.3 % (11.6-14.6); RBC Distribution Width SD 41.8 fl (35.1-43.9); White Blood Count 9.3 K/mm3 (4.4-11.0)
[2020-07-01 21:21] LABS: D-Dimer Quantitative (DVT/PE) 0.39 FEU/ug/m (0.27-0.49)
[2020-07-01 21:42] LABS: Anion Gap 3 (5-15); BUN 15 mg/dL (7-18); BUN/Creat Ratio 27.3 RATIO (10-20); Calcium,Total 9.1 mg/dL (8.5-10.1); Chloride 111 mmol/L (98-107); Creatinine, Serum 0.55 mg/dL (0.55-1.02); EST Glomerular Filtration Rate 144 mL/min (>60); Est Glom Filt Rate - Afr Amer 175 mL/min (>60); Estimated Creatinine Clearance 181.76 ml/min; Glucose 92 mg/dL (74-106); Potassium 3.8 mmol/L (3.5-5.1); Sodium Level 141 mmol/L (136-145)
[2020-07-01 21:47] LABS: Internal QC Validated? YES +Cl - CLEAR BKGD; Pregnancy, Serum, hCG Quali. NEGATIVE Negative
[2020-07-01 22:02] VITALS: BP 108/65; PULSE 71; RESP 11; O2SAT 98
== END 2020-07-01 22:06 | disposition home or self-care (01) ==
PROVIDERS: Emergency Provider Emergency Medicine
DX: R07.89 Other chest pain (principal); R25.2 Cramp and spasm; R06.00 Dyspnea, unspecified; R51 Headache; R60.0 Localized edema; F17.200 Nicotine dependence, unspecified, uncomplicated; Z86.718 Personal history of other venous thrombosis and embolism; Z86.711 Personal history of pulmonary embolism
CPT/HCPCS: 71045; 80048; 84484; 84703; 85025; 85379; 93005; 96360; 99284; J7030; A4216

== ENCOUNTER 2020-09-09 17:07 | Emergency (ER) | payer MEDICAID, SELFPAY ==
[2020-09-09 17:07] VITALS: BP 122/59; PULSE 125; RESP 18; TEMP 36.2; O2SAT 98; BMI 31.3
--- NOTE | 2020-09-09 17:21 | ED.DCSUM_ITS ---
History of Present Illness Chief Complaint: Chest Pain Informant: Patient Onset: Days Context: Gradual Onset Timing: Intermittent Current Severity: Moderate Maximum Severity: Moderate Narrative: The patient is a 25-year-old female medical history significant for prior pulmonary embolus after delivery of child that presents to the emergency department with hives. Patient states for the past 10 to 14 days, she is had intermittent hives on her arms, chest, and back. She states it would go away but then come back. She denies any new exposures. She does admit to some mild cough that she has had for a few weeks. She states that she was treated with azithromycin for bronchitis, but states she got nauseated and was not able to finish it. She denies fevers or chills. She denies any shortness of breath. Triage did note that she was complaining of chest pain. When I asked her, she states it was not significant. It was only with cough. Prior similar symptoms: No Recent Illness/Hospitalization: No Past Medical History - Allergies and Home Meds Allergies/Adverse Reactions: Allergies azithromycin [From Zithromax Z-Hemal] Allergy (Verified 09/09/20 17:11) Nausea Primary Care Physician: Care Physician,No Primary [Primary Care Provider] - Prior records reviewed: Yes Past Medical History: None Surgical History: noncontributory Smoking Status: Current every day smoker Review of Systems General: Denies: Chills, Fever, Sweats Eyes: Denies: Visual changes - bilaterally, Diplopia ENT: Denies: Rhinorrhea, Sore throat Cardiovascular: Denies: Chest pain, Palpitations Respiratory: Denies: Dyspnea, Cough, Dyspnea on exertion Gastrointestinal: Denies: Abdominal pain, Nausea, Vomiting, Diarrhea, Melena, Hematochezia Genitourinary: Denies: Dysuria, Hematuria, Frequency Musculoskeletal: Denies: Back pain, Extremity Pain Skin: Reports: Rash. Denies: Wounds Neurological: Denies: Headache, Weakness, Numbness Physical Exam Vital Signs/Narrative: Vital Signs Temp Pulse Resp BP Pulse Ox 09/09/20 17:07 97.2 F L 125 H 18 122/59 H 98 Inital Vital Signs reviewed: Yes General: Well nourished, Well developed, No Acute Distress Head: Normocephalic, Atraumatic Eyes: Perrl, EOMI ENT: Moist mucous membranes, No rhinorrhea Neck: Supple, Nontender Cardiovascular: Regular rate, Regular rhythm, No murmurs Respiratory: No distress, CTA bilaterally, Chest nontender Abdomen: Soft, Nontender, Nondistended, Normal bowel sounds Back: Nontender, Normal Inspection Extremities: Nontender, No edema Skin: Normal color, Rash - Patient does have hives on left arm, left back, and anterior chest. No cellulitis. Neurological: Alert, Oriented x3, Cranial nerves II-XII grossly intact, Normal Strength, Normal Sensation Psychological: Normal affect, Normal Mood Diagnostic/Tx/Re-eval Clinical Impression(s) from Imaging Studies Chest X-Ray 09/09/20 17:25 IMPRESSION: Normal x-ray examination of the chest. Electronically Signed: Kyree Henry MD at 17:41 EDT , Service support , - Rhythm Strip Rhythm Strip: Sinus Rhythm Rate: 90 Ectopy: None - EKG Initial EKG Interpretation: No Acute Injury Pattern, Sinus Tachycardia Prior: Unchanged - Medical Decision Making The patient presents with urticaria. My suspicion is is likely a viral reaction. She is very well-appearing. She really denied any chest pain. EKG w as obtained which was unremarkable and unchanged. Chest x-ray shows no focal infiltrative process. At this point, I am going to treat the patient with Vistaril and with a prednisone burst. She is comfortable with this plan of care. Impression 1. Urticaria ED Disposition - Plan for ED Patient: Instructions: ED URTICARIA Prescriptions: Prednisone [Deltasone] 60 mg PO DAILY #15 tab Prescription Printed hydrOXYzine pamoate capsule [Vistaril] 50 mg PO TID PRN PRN #30 cap PRN Reason: Anxiety Prescription Printed Referrals: Care Physician,No Primary [Primary Care Provider] -
--- NOTE | 2020-09-09 17:25 | RAD_ITS ---
STUDY: X-RAY CHEST REASON FOR EXAM: Female, 25 years old. cp x 5 days. c/o cold in chest. coughing up clear. c/o hives on trunk body. TECHNIQUE: AP portable COMPARISON: 07/01/2020 FINDINGS: The lungs are clear and expanded. There is no demonstrated pleural abnormality. Normal size heart. Normal mediastinum and navneet. Normal visualized pulmonary arteries. Normal visualized aortic arch and descending thoracic aorta. Normal visualized thoracic spine. Normal visualized ribs, clavicles, and shoulders. There is no demonstrated abnormality of the visualized soft tissue structures of the upper abdomen. No significant change since prior exam RAD/Chest 1 View IMPRESSION: Normal x-ray examination of the chest. Electronically Signed: Kyree Henry MD at 17:41 EDT , Service support ,
[2020-09-09] MEDS: predniSONE 20 MG Tablet 60 MG PO (18:00)
== END 2020-09-09 18:06 | disposition home or self-care (01) ==
PROVIDERS: Emergency Provider Emergency Medicine
DX: L50.9 Urticaria, unspecified (principal); R05 Cough; F17.200 Nicotine dependence, unspecified, uncomplicated; Z86.711 Personal history of pulmonary embolism
CPT/HCPCS: 71045; 99281; 99284

== ENCOUNTER 2020-09-30 10:21 | Emergency (ER) | payer MEDICAID, SELFPAY ==
[2020-09-30 10:23] VITALS: BP 116/74; PULSE 119; RESP 16; TEMP 36.3; O2SAT 96; BMI 31.3
--- NOTE | 2020-09-30 10:45 | ED.VIS.GEN ---
History of Present Illness Chief Complaint: Rash Narrative: Presents with 1 month history of intermittent hives she was put on steroids which somewhat helped but now she gets intermittent hives most days although at the time she arrives into the emergency department she is asymptomatic and has no hives. Past Medical History - Allergies and Home Meds Allergies/Adverse Reactions: Allergies azithromycin [From Zithromax Z-Hemal] Allergy (Verified 09/30/20 10:23) Nausea prednisolone Adverse Reaction (Verified 09/30/20 10:23) NEEDS FOLLOW-UP MAKES ME SICK MENTALLY I CANT TOLERATE IT. ITS NOT A GOOD MEDICINE FOR ME Primary Care Physician: Care Physician,No Primary [Primary Care Provider] - Past Medical History: None Surgical History: noncontributory Smoking Status: Current every day smoker Review of Systems General: Denies: Fever Cardiovascular: Denies: Chest pain Respiratory: Denies: Dyspnea, Cough Musculoskeletal: Denies: Back pain Skin: Reports: Rash Neurological: Denies: Weakness Psych: Reports: - - She denies any anxiety Allergy: Reports: Uticaria. Denies: Swelling of the mouth, Swelling of the tongue Physical Exam Vital Signs/Narrative: Vital Signs Temp Pulse Resp BP Pulse Ox 09/30/20 10:23 97.3 F L 119 H 16 116/74 96 Head: Normocephalic, Atraumatic ENT: Moist mucous membranes, - - Normal voice Cardiovascular: Regular rate, Regular rhythm Respiratory: No distress, CTA bilaterally Abdomen: Soft Skin: Normal color, No rash Diagnostic/Tx/Re-eval - Medical Decision Making There is no current urticaria. I will give the patient Vistaril and followed up with her PCP. ED Disposition - Plan for ED Patient: Disposition: Home or Assisted Living Diagnosis: Acute urticaria Instructions: ED URTICARIA Prescriptions: hydrOXYzine pamoate capsule [Vistaril] 50 mg PO TID PRN PRN #30 cap PRN Reason: Anxiety Transmission Status: Pending to [facility]30 Referrals: Care Physician,No Primary [Primary Care Provider] - 3-5 Days
== END 2020-09-30 11:05 | disposition home or self-care (01) ==
LOC: ED 10:59
PROVIDERS: Emergency Provider Emergency Medicine
DX: L50.9 Urticaria, unspecified (principal); F17.200 Nicotine dependence, unspecified, uncomplicated
CPT/HCPCS: 99282

== ENCOUNTER 2021-02-04 18:23 | Emergency (ER) | payer MEDICAID, SELFPAY ==
[2021-02-04 18:24] VITALS: BP 130/76; PULSE 106; RESP 14; TEMP 37.1; O2SAT 96; BMI 35.6
--- NOTE | 2021-02-04 18:48 | ED.DCSUM_ITS ---
History of Present Illness Chief Complaint: Chest Pain Detail of Chief Complaint: Intermittent bilateral anterior chest pain and weight gain Informant: Patient Onset: Month(s) - Approximately 4 months Context: Sudden Onset Timing: Intermittent Quality: Pain Location: Anterior chest bilateral Current Severity: - - Absent Maximum Severity: Moderate Worsened by: Nothing Relieved by: Nothing Associated Symptoms: No associated symptoms, complains of numbness left upper extremity Narrative: Patient is a 25-year-old female with history of depression and anxiety who has not seen her counselor since October presents with bilateral anterior chest pain with no precipitating, exacerbating or alleviating factors. She does report numbness in her left upper extremity. This occurs 5-6 times per day and has been ongoing for approximately 4 months. She denies fever, chills night sweats. She denies headache. She denies visual, ocular auditory symptoms. She denies nausea, vomiting diarrhea. She denies dysuria, frequency, urgency or hematuria. She does report malaise and fatigue. She reports approximately 15 pound weight gain this past month and is gained approximately 50 pounds in the past year. She believes she has hypothyroidism however she denies cold intolerance. She denies loss of hair. She denies coldness to her hands or feet. Prior similar symptoms: Yes Recent Illness/Hospitalization: Yes - Past Medical History (1) History of depression Status: Acute (2) DVT (deep venous thrombosis) Status: Resolved (3) Pulmonary embolism Status: Resolved Past Medical History - Allergies and Home Meds Allergies/Adverse Reactions: Allergies azithromycin [From Zithromax Z-Hemal] Allergy (Verified 02/04/21 18:27) Nausea prednisolone Adverse Reaction (Verified 02/04/21 18:27) NEEDS FOLLOW-UP MAKES ME SICK MENTALLY I CANT TOLERATE IT. ITS NOT A GOOD MEDICINE FOR ME Primary Care Physician: Care Physician,No Primary [Primary Care Provider] - Prior records reviewed: Yes Surgical History: noncontributory Lives: Alone Smoking Status: Current every day smoker Alcohol: Rare Drugs: None Review of Systems General: Reports: Malaise. Denies: Chills, Fever, Subjective, Weight loss Eyes: Denies: Visual changes - bilaterally, Blurred Vision - bilaterally ENT: Reports: - - She denies ear pain or ringing or ears.. Denies: Bilateral ear pain, Right ear pain, Rhinorrhea Cardiovascular: Reports: Chest pain Respiratory: Denies: Dyspnea, Cough, Dyspnea on exertion, Orthopnea, Paroxysmal nocturnal dyspnea Gastrointestinal: Reports: Constipation. Denies: Abdominal pain, Nausea, Vomiting, Diarrhea, Melena, Hematochezia Genitourinary: Denies: Dysuria, Hematuria, Frequency Musculoskeletal: Denies: Myalgias, Arthralgias, Neck pain, Back pain, Swelling, Extremity Pain, -, - Skin: Denies: Rash, Wounds Neurological: Reports: Weakness Psych: Reports: Depression, Anxiety - She feels like there is something wrong. Endocrine: Denies: Polyuria, Polydipsia Hematologic: Denies: Easy bruising, Easy bleeding Physical Exam Vital Signs/Narrative: Vital Signs Temp Pulse Resp BP Pulse Ox 02/04/21 18:24 98.7 F 106 H 14 130/76 H 96 Inital Vital Signs reviewed: Yes General: Well nourished, Well developed, Obese, No Acute Distress Head: Normocephalic, Atraumatic Eyes: Perrl, EOMI ENT: Moist mucous membranes, No rhinorrhea Neck: Supple, Nontender Cardiovascular: Regular rate, Regular rhythm, No murmurs Respiratory: No distress, CTA bilaterally, Chest nontender Abdomen: Soft, Nontender, Nondistended, Normal bowel sounds Back: Nontender, Normal Inspection Extremities: Nontender, No edema Skin: Normal color, No rash Neurological: Alert, Oriented x3, Cranial nerves II-XII grossly intact, Normal Strength, Normal Sensation Psychological: Depressed, Tearful, - - Began to cry when asked if she is depressed. Is also had problems with sleep. She denies suicidal homicidal ideation. She stopped seeing her counselor the end of last year. She reports multiple stressors. Diagnostic/Tx/Re-eval - Medical Decision Making Patient has numerous symptoms which would be consistent with depression. She also feels anxious. She was instructed to follow-up at 180. She was prescribed a mild antianxiolytic. ED Disposition - Plan for ED Patient: Disposition: Home or Assisted Living Diagnosis: Depression with anxiety, Non-cardiac chest pain, Fatigue Instructions: ED Depression, ED Chest Pain, Noncardiac Prescriptions: Clorazepate [Tranxene] 3.75 mg PO TID PRN PRN 7 Days #21 tablet PRN Reason: Anxiety Transmission Status: Sent to [facility] Referrals: Care Physician,No Primary [Primary Care Provider] - [facility] [STAFF PHYSICIAN] - 3-5 Days
== END 2021-02-04 19:17 | disposition home or self-care (01) ==
LOC: ED 19:02
PROVIDERS: Emergency Provider Emergency Medicine
DX: F32.9 Major depressive disorder, single episode, unspecified (principal); F41.9 Anxiety disorder, unspecified; R07.89 Other chest pain; R53.83 Other fatigue; R20.0 Anesthesia of skin; E66.9 Obesity, unspecified; F17.200 Nicotine dependence, unspecified, uncomplicated; Z86.718 Personal history of other venous thrombosis and embolism; Z86.711 Personal history of pulmonary embolism; Z79.899 Other long term (current) drug therapy
CPT/HCPCS: 99282

== ENCOUNTER 2021-04-12 22:52 | Emergency (ER) | payer MEDICAID, SELFPAY ==
[2021-04-12 22:53] VITALS: BP 114/67; PULSE 104; RESP 16; TEMP 36.1; O2SAT 96; BMI 36.3
--- NOTE | 2021-04-12 23:04 | ED.VIS.DENTA ---
HPI History of Present Illness Chief Complaint: Dental Informant: patient Onset/Context/Timing Onset: Weeks (Onset of pain 1 week ago) Context: Sudden Onset Timing: Continuous Quality: Pain Location: Lower right and left molars Current Severity: Mild Maximum Severity: Moderate Relieved by: - (Nothing) Associated Symptoms Assocated Symptom - Dental: cold sensitivity; Negative for fever, jaw swelling or face swelling Narrative Narrative: Patient is a 26-year-old female who presents with dental pain that started 1 week ago. She has not a dentist. She denies antibiotic allergies. Denies atraumatic fever, heart murmur, mitral valve prolapse or being immune suppressed. She denies IV drug use. She denies drooling. Denies change in voice. She denies facial swelling or redness. Prior similar symptoms: No Recent Illness/Hospitalization: No PFSH PFSH Home Medications clindamycin HCl [Cleocin HCl] 300 mg PO Q6H #28 capsule 04/12/21 [Rx Last Taken Unknown] hydrocodone-acetaminophen 1 tab PO Q6H PRN PRN 3 Days #10 tablet 04/12/21 [Rx Last Taken Unknown] naproxen 500 mg PO BID #14 tab 04/12/21 [Rx Last Taken Unknown] Allergy/AdvReac Type Severity Reaction Status Date / Time azithromycin Allergy Nausea Verified 04/12/21 22:53 [From Zithromax Z-Hemal] prednisolone AdvReac NEEDS Verified 04/12/21 22:53 FOLLOW-UP Social History (Updated 04/12/21 @ 23:[address] Allen Herrmann MD) household members: significant other Smoking Status: Current every day smoker alcohol intake: current substance use type: does not use ROS ROS ED Constitutional Constitutional ED: Denies chills, fever(s), subjective or sweats Eyes Eyes: Denies blurry vision or change in vision ENT ENT ED: Denies ear pain, rhinorrhea or sore throat Cardiovascular Cardiovascular: Denies chest pain or palpitations Respiratory/Chest Respiratory/Chest: Denies cough or dyspnea Gastrointestinal Gastrointestinal: Denies nausea or vomiting Integumentary Denies rash Hematologic/Lymphatic Hematologic/Lymphatic: Denies easy bruising EXAM Physical Exam Const Vital Signs: 04/12/21 22:53 Temperature 96.9 F L Temperature Source Temporal Pulse Rate 104 H Respiratory Rate 16 Blood Pressure 114/67 Blood Pressure Mean 82 Pulse Ox 96 Oxygen Delivery Method Room Air Positive well nourished, well developed and obese General Appearance ED: well developed Nutritional Appearance: obese HEENT Reports TM's clear HEENT Narrative: There is no evidence of Ludewig's angina. Tympanic Membrane ED: Yes TM's clear Mouth ED: Yes oral and palatal mucosa normal, Yes lips normal, Yes tongue normal and Yes salivary gland normal Mouth: oral and palatal mucosa normal, lips normal, tongue normal and salivary gland normal Teeth and Gingiva: abnormal tooth and associated gingiva, caries and poor dentition Throat: posterior oropharynx normal Eyes PERRL and EOMs intact bilaterally General Eye ED: Negative for pale conjunctiva or scleral icterus Neck no lymphadenopathy, supple and no JVD Neck Narrative: Trachea is midline. There is no inspiratory expiratory stridor. General: normal visual inspection Chest Wall inspection of chest normal Resp normal respiratory effort and clear to auscultation bilaterally Cardio regular rate, regular rhythm, S1 normal heart sound, S2 normal heart sound and no murmurs Neuro oriented x3 and CN's II-XII intact bilaterally Sensorium / Orientation: alert Psych mental status grossly normal Skin no rashes or lesions noted MDM MDM MDM Narrative Medical decision making narrative: Patient has decay tooth #17, 18 and 19 as well as tooth #31 and 32. There is exposure of the pulp. There is swelling of the gingiva. Patient was treated with oral opiate analgesia and NSAIDs as well as antibiotics. She was given referral to dentist. Patient was informed of the importance of follow-up and the importance of caring for her teeth. Discharge Plan Triage Chief Complaint: Dental ED Provider: Allen Herrmann Dx/Rx/DC Orders Clinical Impression: Abscess, dental, Dental caries extending into pulp, Symptomatic reversible pulpitis Instructions: ED Dental Cavity, ED Dental Abscess Prescriptions: New clindamycin HCl [Cleocin HCl] 300 MG capsule 300 mg PO Q6H Qty: 28 RF: 0 hydrocodone-acetaminophen [hydrocodone-acetaminophen] 1 TABLET tablet 1 tab PO Q6H PRN PRN (Reason: Pain) 3 Days Qty: 10 RF: 0 naproxen 500 MG tablet 500 mg PO BID Qty: 14 RF: 0 Primary Care Provider: Care Physician,No Primary Referrals: Care Physician,No Primary [Primary Care Provider] - Dentist,Your [STAFF PHYSICIAN] - 5-7 Days Disposition Disposition: Home, self care
[2021-04-12] MEDS: Clindamycin HCl 150 MG Capsule 300 MG PO (23:27)
[2021-04-12] MEDS: HYDROcodone Bitartrate/Apap 5/325 Tablet PO (23:27)
[2021-04-12] MEDS: Naproxen 250 MG Tablet 500 MG PO (23:28)
[2021-04-12 23:29] VITALS: RESP 18
== END 2021-04-12 23:31 | disposition home or self-care (01) ==
LOC: ED 23:21
PROVIDERS: Emergency Provider Emergency Medicine
DX: K04.7 Periapical abscess without sinus (principal); K04.01 Reversible pulpitis; K02.9 Dental caries, unspecified; E66.9 Obesity, unspecified; F17.200 Nicotine dependence, unspecified, uncomplicated
CPT/HCPCS: 99283

== ENCOUNTER 2021-06-16 13:09 | Emergency (ER) | payer MEDICAID, SELFPAY ==
[2021-06-16 13:10] VITALS: BP 128/76; PULSE 112; RESP 16; TEMP 37.1; O2SAT 96; BMI 32.5
--- NOTE | 2021-06-16 13:22 | ED.VIS.BACK ---
HPI History of Present Illness Chief Complaint: Back Informant: patient Onset/Context/Timing Onset: Month(s) (4 months) Context: Sudden Onset Chronic pain exacerbated by: History of blunt trauma Injury: direct trauma Timing: Continuous Quality: Dull and Aching Location: Lumbar Current Severity: Mild Maximum Severity: Moderate Worsened by: improves with Movement and Bending Relieved by: Nothing Associated Symptoms Associated Symptoms: Negative for Numbness, Tingling, Radiation to Right Leg, Radiation to Left Leg, Fever, Abdominal Pain, Dysuria, Unable to Ambulate, Unable to Transfer, Urinary Retention, Urinary Incontinence, Constipation and Fecal Incontinence Narrative Narrative: Patient is a 26-year-old female who presents with right lower back pain for 5 months. She states she did hit her back 4 months ago. She has bowel bladder dysfunction. Denies saddle paresthesia or anesthesia. Denies radicular pain. Denies foot drop. Denies buckling of her knees going up or down steps. She denies fever or chills. She denies recent dental work. Prior similar symptoms: No Recent Illness/Hospitalization: No PFSH PFSH Home Medications clindamycin HCl [Cleocin HCl] 300 mg PO Q6H #28 capsule 04/12/21 [Rx Last Taken Unknown] hydrocodone-acetaminophen 1 tab PO Q6H PRN PRN 3 Days #10 tablet 04/12/21 [Rx Last Taken Unknown] naproxen 500 mg PO BID #14 tab 04/12/21 [Rx Last Taken Unknown] naproxen 500 mg PO BID #20 tab 06/16/21 [Rx Last Taken Unknown] Allergy/AdvReac Type Severity Reaction Status Date / Time azithromycin Allergy Nausea Verified 06/16/21 13:11 [From Zithromax Z-Hemal] prednisolone AdvReac NEEDS Verified 06/16/21 13:11 FOLLOW-UP Social History household members: significant other Smoking Status: Current every day smoker alcohol intake: current substance use type: does not use ROS ROS ED Constitutional Constitutional ED: Denies chills, fever(s) or subjective Eyes Eyes: Denies blurry vision, change in vision or diplopia ENT ENT ED: Denies ear pain, rhinorrhea or sore throat Cardiovascular Cardiovascular: Denies chest pain or palpitations Gastrointestinal Gastrointestinal: Denies abdominal pain, constipation, nausea or vomiting Genitourinary Genitourinary ED: Denies dysuria, hematuria or urinary frequency Musculoskeletal Musculoskeletal: Reports back pain; Denies arthralgias, myalgias or neck pain Integumentary Denies rash Neurologic Neurologic: Denies paresthesias or weakness EXAM Physical Exam Const Vital Signs: 06/16/21 13:10 Temperature 98.8 F Temperature Source Temporal Pulse Rate 112 H Respiratory Rate 16 Blood Pressure 128/76 H Blood Pressure Mean 93 Pulse Ox 96 Oxygen Delivery Method Room Air Positive well nourished, well developed and obese General Appearance ED: well developed Nutritional Appearance: obese HEENT HEENT Narrative: Head is atraumatic normocephalic. Ears are normal. Face is symmetric. Eyes PERRL and EOMs intact bilaterally General Eye ED: Negative for pale conjunctiva Resp normal respiratory effort Cardio regular rate, regular rhythm, S1 normal heart sound, S2 normal heart sound and no murmurs GI normal to inspection, nondistended, normoactive bowel sounds, soft to palpation, non-tender and non-distended Back/Spine normal to inspection; Negative for no thoracic nor lumbar tenderness Back/Spine Narrative: Gait was observed and normal. There is no foot drop. Able to walk on heels and toes. Able to perform 1 legged squat. Normal sensation. DTRs 1+. EHLs intact. DP and PT pulse are palpable. There is no evidence of trauma to the back. There is no midline tenderness. Pain is worse with bending to the right left and flexion extension. General Back: Negative for CVA tenderness or scar(s) Cervical Spine: Negative for cervical spine tenderness and Negative for paracervical muscle tenderness Thoracic Spine / Upper Back: paraspinal muscle tenderness Lumbar Spine / Lower Back: straight leg raise negative bilaterally; Negative for ROM limited Extremity normal to inspection General Extremety ED: Negative for edema or tenderness General Extremity: Negative for edema Neuro oriented x3 and no sensory deficits noted Sensorium / Orientation: alert Motor Exam: strength 5/5 throughout Deep Tendon Reflexes: Rt Patellar (L4): 1+, Lt Patellar (L4): 1+, Rt Ankle (S1): 1+ and Lt Ankle (S1): 1+ Deep Tendon Reflexes Back: Rt Patellar (L4): 1+, Lt Patellar (L4): 1+, Rt Ankle (S1): 1+ and Lt Ankle (S1): 1+ Plantar Reflex: Downgoing: bilateral Psych mental status grossly normal Skin no rashes or lesions noted and no wounds MDM MDM MDM Narrative Medical decision making narrative: Patient presents with muscular low back pain. She has not taken anything or done anything for it. Plan is NSAIDs since was no contraindication. Since she has no physician in the area and ensured she was referred to Dr. Dubois Discharge Plan Triage Chief Complaint: Back ED Provider: Allen Herrmann Dx/Rx/DC Orders Clinical Impression: Right low back pain Instructions: ED Back and Neck Pain, General Prescriptions: New naproxen 500 MG tablet 500 mg PO BID Qty: 20 RF: 0 No Action clindamycin HCl [Cleocin HCl] 300 MG capsule 300 mg PO Q6H Qty: 28 RF: 0 hydrocodone-acetaminophen [hydrocodone-acetaminophen] 1 TABLET tablet 1 tab PO Q6H PRN PRN (Reason: Pain) 3 Days Qty: 10 RF: 0 naproxen 500 MG tablet 500 mg PO BID Qty: 14 RF: 0 Primary Care Provider: Care Physician,No Primary Referrals: Naomi Dubois MD [STAFF PHYSICIAN] - 5-7 Days Care Physician,No Primary [Primary Care Provider] - Disposition Disposition: Home, Self Care
[2021-06-16] MEDS: Naproxen 250 MG Tablet 500 MG PO (13:49)
[2021-06-16 13:53] VITALS: PULSE 89; RESP 16
== END 2021-06-16 13:58 | disposition home or self-care (01) ==
LOC: ED 13:38
PROVIDERS: Emergency Provider Emergency Medicine
DX: M54.5 Low back pain (principal); G89.29 Other chronic pain; E66.9 Obesity, unspecified; F17.200 Nicotine dependence, unspecified, uncomplicated; Z79.1 Long term (current) use of non-steroidal anti-inflammatories (NSAID)
CPT/HCPCS: 99283

== ENCOUNTER 2021-07-21 22:38 | Emergency (ER) | payer MEDICAID, SELFPAY ==
[2021-07-21 22:39] VITALS: BP 118/78; PULSE 95; RESP 16; TEMP 36.4; O2SAT 96; BMI 34.3
--- NOTE | 2021-07-21 22:50 | EX.ED.UPPERE ---
HPI History of Present Illness Chief Complaint: Bite Informant: patient Onset/Context/Timing Onset: Today Context: Sudden Onset Timing: Continuous Location: Distal radial volar side because right forearm Current Severity: Mild Maximum Severity: Mild Worsened by: Nothing Relieved by: Nothing Associated Symptoms Associated Symptoms: Negative for Parasthesia, Weakness and Loss of Funtion Narrative Narrative: Patient presents because she believes he has a bite fred on her forearm. She just noticed it. She believes it is brown. She denies any constitutional symptoms. She has no other complaints. She does not have a primary care physician. Tetanus Immunization: <5 years Prior similar symptoms: No Recent Illness/Hospitalization: No PFSH PFSH Medical History (Updated 07/21/21 @ 22:[address] Allen Herrmann MD) Back pain no medical history Home Medications NK 07/21/21 [History Last Taken Unknown] Allergy/AdvReac Type Severity Reaction Status Date / Time azithromycin Allergy Nausea Verified 07/21/21 22:41 [From Zithromax Z-Hemal] prednisolone AdvReac NEEDS Verified 07/21/21 22:41 FOLLOW-UP Social History household members: significant other Smoking Status: Current every day smoker tobacco type: cigarettes alcohol intake: current substance use type: does not use ROS ROS ED Constitutional Constitutional ED: Denies chills, subjective or sweats Musculoskeletal Musculoskeletal: Denies back pain, myalgias or neck pain Integumentary Reports rash; Denies abscess or Abrasions Neurologic Neurologic: Denies paresthesias or weakness Psychiatric Psychiatric: Denies anxiety Hematologic/Lymphatic Hematologic/Lymphatic: Denies easy bleeding or easy bruising Allergic/Immunologic Allergic/Immunologic ED: Denies urticaria EXAM Physical Exam Const Vital Signs: 07/21/21 22:39 Temperature 97.5 F L Temperature Source Temporal Pulse Rate 95 Respiratory Rate 16 Blood Pressure 118/78 Blood Pressure Mean 91 Pulse Ox 96 Oxygen Delivery Method Room Air Positive well nourished and well developed General Appearance ED: well developed HEENT normocephalic and atraumatic Eyes PERRL and EOMs intact bilaterally Resp normal respiratory effort Cardio regular rate and regular rhythm Extremity full ROM; Negative for normal to inspection Extremity Narrative: Axillary, median, radial ulnar function intact. Patient has a small irregularly shaped raised area distal volar radial side of her right forearm. Difficult to determine color since the area is tattooed. There is no evidence infection. Patient was informed this does not look like a bite fred. General Extremety ED: Negative for edema General Extremity: Negative for edema Neuro oriented x3 Sensorium / Orientation: alert Psych mental status grossly normal Skin Lesions: No no lesions Rashes: no rashes Trauma: no lacerations or abrasions MDM MDM MDM Narrative Medical decision making narrative: Patient has an irregular shaped raised lesion. Uncertain what this could be because of tattoo. She referred to dermatology for follow-up Discharge Plan Triage Chief Complaint: Bite ED Provider: Allen Herrmann Dx/Rx/DC Orders Clinical Impression: Skin lesion of right arm Prescriptions: No Action NK RF: 0 Primary Care Provider: Care Physician,No Primary Referrals: Maged Styles MD [STAFF PHYSICIAN] - 5-7 Days Care Physician,No Primary [Primary Care Provider] - Disposition Disposition: Home, Self Care
== END 2021-07-21 23:25 | disposition home or self-care (01) ==
LOC: ED 23:10
PROVIDERS: Emergency Provider Emergency Medicine
DX: L98.9 Disorder of the skin and subcutaneous tissue, unspecified (principal); F17.210 Nicotine dependence, cigarettes, uncomplicated
CPT/HCPCS: 99282

== ENCOUNTER 2021-08-22 14:43 | Emergency (ER) | payer MEDICAID, SELFPAY ==
[2021-08-22 14:44] VITALS: BP 115/67; PULSE 105; RESP 16; TEMP 36.8; O2SAT 99; BMI 37.3
[2021-08-22 17:32] LABS: Mucous, Urine 0 SEEN /hpf (<or=2+); Red Blood Cells-Urine 0 SEEN /hpf (0-5)
[2021-08-22 17:37] LABS: Color, Urine Yellow (Yellow); Glucose, Dipstick Normal (Normal); Ketone-Dipstick Negative (Negative); Leukocyte Esterase-Dipstick 500 /ul (Negative); Nitrite-Dipstick Negative (Negative); Occult Blood-Urine Negative /ul (Negative); Protein-Dipstick Negative (Negative); Urine Bilirubin Dipstick Negative (Negative); Urine Clarity Sl. Cloudy (Clear); Urine Urobilinogen Normal (Normal)
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
[2021-08-22 17:52] LABS: White Blood Cells 5-10 SEEN /hpf (0-5)
[2021-08-22 17:53] LABS: Bacteria 2+ /hpf (None Seen); Squamous Epithelial Cells - UA 0-5 SEEN /hpf (5-10)
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
[2021-08-22 18:57] LABS: Internal QC Validated? YES +Cl - CLEAR BKGD; Pregnancy, Urine Negative Negative
== END 2021-08-22 19:39 | disposition home or self-care (01) ==
PROVIDERS: Emergency Provider Emergency Medicine
DX: M54.5 Low back pain (principal); K05.10 Chronic gingivitis, plaque induced; F17.210 Nicotine dependence, cigarettes, uncomplicated
CPT/HCPCS: 72110; 81001; 81025; 87086; 87088; 99282

== ENCOUNTER 2022-02-20 10:33 | Emergency (ER) | payer MEDICAID, SELFPAY ==
[2022-02-20 10:35] VITALS: BP 125/64; PULSE 110; RESP 14; TEMP 35.4; O2SAT 98; BMI 34.8
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
[2022-02-20] MEDS: Ibuprofen 600 MG Tablet PO (10:54)
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
== END 2022-02-20 11:36 | disposition home or self-care (01) ==
LOC: ED 11:08
PROVIDERS: Emergency Provider Emergency Medicine; Visit Provider Emergency Medicine
DX: S00.83XA Contusion of other part of head, initial encounter (principal); S50.02XA Contusion of left elbow, initial encounter; S00.03XA Contusion of scalp, initial encounter; R07.89 Other chest pain; Y04.8XXA Assault by other bodily force, initial encounter; Y92.89 Other specified places as the place of occurrence of the external cause; F17.210 Nicotine dependence, cigarettes, uncomplicated; Z86.718 Personal history of other venous thrombosis and embolism; Z86.711 Personal history of pulmonary embolism
CPT/HCPCS: 70450; 71046; 99282

== ENCOUNTER 2022-06-08 00:58 | Emergency (ER) | payer MEDICAID, SELFPAY ==
[2022-06-08 00:59] VITALS: BP 118/89; PULSE 91; RESP 15; TEMP 36.7; O2SAT 99; BMI 31.4
--- NOTE | 2022-06-08 01:35 | EDS_ITS ---
HPI History of Present Illness Chief Complaint: Headache Narrative Narrative: 27-year-old female presenting with headache. She states he had it for 2 days. Its constant. It was not sudden onset but has been persistent. She points to the top of her head and to the left side of her face. She not had a rash she denies fever or neck pain. No visual complaints. she denies head injury. No nausea or vomiting. She states over the last 2 days she has been eating nonstop. No concern for . No urinary symptoms or GI symptoms. She states that she did try ibuprofen and this did not help. She states that she does not want take Tylenol because it messes with her kidneys. No history of migraines. [facility] Medical History Back pain Allergy/AdvReac Type Severity Reaction Status Date / Time azithromycin Allergy Nausea Verified 06/08/22 00:59 [From Zithromax Z-Hemal] prednisolone AdvReac NEEDS Verified 06/08/22 00:59 FOLLOW-UP Social History household members: significant other Smoking Status: Current every day smoker tobacco type: cigarettes alcohol intake: current substance use type: does not use ROS ROS ED Constitutional Constitutional ED: Denies chills or fever(s) Eyes Eyes: Denies change in vision or diplopia ENT ENT ED: Denies rhinorrhea or sore throat Cardiovascular Cardiovascular: Denies chest pain or palpitations Respiratory/Chest Respiratory/Chest: Denies cough or dyspnea Gastrointestinal Gastrointestinal: Denies abdominal pain or constipation Genitourinary Genitourinary ED: Denies dysuria or hematuria Musculoskeletal Musculoskeletal: Denies arthralgias or back pain Integumentary Denies abscess Neurologic Neurologic: Reports headache(s); Denies paresthesias or weakness Psychiatric Psychiatric: Denies anxiety or depression EXAM Physical Exam Const Vital Signs: 06/08/22 00:59 06/08/22 03:29 Temperature 98.1 F Temperature Source Oral Pulse Rate 91 80 Respiratory Rate 15 15 Blood Pressure 118/89 H 112/73 Blood Pressure Mean 98 86 Pulse Ox 99 98 Oxygen Delivery Method Room Air Room Air Positive well nourished General Appearance ED: NAD; Negative for pallor HEENT Reports normocephalic and moist mucous membranes atraumatic and temporal artery tenderness left Eyes PERRL and EOMs intact bilaterally Resp normal respiratory effort and clear to auscultation bilaterally Auscultation: Negative for rales, rhonchi or wheezes Cardio regular rate and regular rhythm Neuro oriented x3, CN's II-XII intact bilaterally and no sensory deficits noted Sensorium / Orientation: awake and alert Speech: speech normal Gait (Neuro): normal gait Motor Exam: strength 5/5 throughout Psych mental status grossly normal Skin General Skin Exam: Negative for jaundice or pallor MDM MDM MDM Narrative Medical decision making narrative: Patient presenting with headache. She states has been constant for couple of days. She is tried ibuprofen without relief. She will try Tylenol. She does not have any focal neurologic deficits or lateralizing signs or symptoms. Vital signs are normal. She states that she is tender over the top of her scalp in the left voodoo. With distraction this does not appear to be tender to her at all. CBC and BMP are unremarkable. Sed rate is 7 so I do not believe she has temporal arteritis. After Reglan and Benadryl she states she still has a headache so she is given Toradol. Neck is better. She request a work note for today. She is discharged home in stable condition. Impression: 1. Headache Lab Data Attestation: I reviewed the patient's lab results. Labs: Laboratory Results - last 24 hr 06/08/22 06/08/22 01:41 01:41 WBC 9.2 RBC 4.51 Hgb 13.6 Hct 40.8 MCV 90.5 MCH 30.2 MCHC 33.3 RDW Std Deviation 41.0 RDW Coeff of Breanna 12.4 Plt Count 243 MPV 10.7 Immature Gran % (Auto) 0.200 Neut % (Auto) 54.0 Lymph % (Auto) 36.0 [place] % (Auto) 6.0 Eos % (Auto) 3.4 Baso % (Auto) 0.4 Absolute Neuts (auto) 5.0 Absolute Lymphs (auto) 3.30 Nucleated RBC % 0 ESR 7 Sodium 142 Potassium 3.6 Chloride 111 H Carbon Dioxide 28.0 Anion Gap 3 L BUN 9 Creatinine 0.71 Estim Creat Clear Calc 133.64 Est GFR (MDRD) Af Amer 128 Est GFR (MDRD) Non-Af 105 BUN/Creatinine Ratio 12.7 Glucose 97 Calcium 8.9 Radiography Diagnostic Testing: Clinical Impression(s) from Imaging Studies Brain CT 06/08/22 01:35 IMPRESSION: No acute abnormal intracranial finding. Electronically Signed: Scott Corona MD at 2:33 EDT , Discharge Plan Triage Chief Complaint: Headache ED Provider: Chaparro Howe Dx/Rx/DC Orders Instructions: ED Headache Unspecified Primary Care Provider: Care Physician,No Primary Referrals: Anastasiia Grant DO [STAFF PHYSICIAN] - 3-5 Days Care Physician,No Primary [Primary Care Provider] - Disposition Disposition: Home, Self Care
--- NOTE | 2022-06-08 01:35 | CT_ITS ---
STUDY: CT BRAIN WITHOUT CONTRAST REASON FOR EXAM: Female, 27 years old. Headache RADIATION DOSAGE (If Supplied By Facility): CTDIvol = ( 44.99 ) mGy, DLP = ( 812.98 ) mGycm TECHNIQUE: Transaxial CT imaging of the brain was performed without administration of intravenous contrast material. Individualized dose optimization techniques were used for this CT. COMPARISON: 02/20/2022 FINDINGS: Normal soft tissue structures. Normal calvarium. Normal size ventricles and extra-axial spaces for the patient''s age. Normal white matter tracts of the cerebral hemispheres. Normal basal ganglia and thalami. Normal brainstem. Normal cerebellum. There is no intracranial hemorrhage. There are no findings of an acute ischemic infarction. Normal visualized paranasal sinuses. CT/Brain/Head without Contrast IMPRESSION: No acute abnormal intracranial finding. Electronically Signed: Scott Corona MD at 2:33 EDT ,
[2022-06-08 02:09] LABS: Erythrocyte Sedimentation Rate 7 mm/hr (0-30)
[2022-06-08 02:11] LABS: Basophil# 0.04 X10^3/uL; Basophil% 0.4 % (0-1); Eosinophil# 0.31 X10^3/uL; Eosinophils% 3.4 % (0-5); Hematocrit 40.8 % (37-47); Hemoglobin 13.6 g/dL (12.0-15.0); Mean Corp Hgb Conc 33.3 g/dL (32-36); Mean Corpuscular Hgb 30.2 pg (27.0-32.0); Mean Corpuscular Volume 90.5 fL (81-99); Mean Platelet Vol. 10.7 fl (6.2-12.0); Monocyte# 0.55 X10^3/uL; NRBC Flagged by Analyzer 0 % (0-5); Neutrophil # 4.95 X10^3/uL (2.7-7.7); Platelet Count 243 K/mm3 (150-450); RBC Distribution Width CV 12.4 % (11.6-14.6); Red Blood Count 4.51 M/mm3 (4.2-5.4); White Blood Count 9.2 K/mm3 (4.4-11.0)
[2022-06-08 02:15] LABS: Anion Gap 3 (5-15); BUN 9 mg/dL (7-18); BUN/Creat Ratio 12.7 RATIO (10-20); Calcium,Total 8.9 mg/dL (8.5-10.1); Chloride 111 mmol/L (98-107); Creatinine, Serum 0.71 mg/dL (0.55-1.02); EST Glomerular Filtration Rate 105 mL/min (>60); Est Glom Filt Rate - Afr Amer 128 mL/min (>60); Estimated Creatinine Clearance 133.64 ml/min; Glucose 97 mg/dL (74-106); Potassium 3.6 mmol/L (3.5-5.1); Sodium Level 142 mmol/L (136-145)
[2022-06-08 03:29] VITALS: BP 112/73; PULSE 80; RESP 15; O2SAT 98
[2022-06-08] MEDS: Ketorolac 15 MG/ML Vial IV (03:57)
[2022-06-08] MEDS: Metoclopramide 10 MG/2 ML Vial IV (04:16)
[2022-06-08] MEDS: DiphenhydrAMINE 50 MG/ML Syringe 25 MG IV (04:18)
[2022-06-08 04:26] VITALS: BP 112/73; PULSE 80; RESP 15; O2SAT 99
== END 2022-06-08 04:26 | disposition home or self-care (01) ==
PROVIDERS: Emergency Provider Student in an Organized Health Care Education/Training Program; Visit Provider Student in an Organized Health Care Education/Training Program
DX: R51.9 Headache, unspecified (principal); F17.210 Nicotine dependence, cigarettes, uncomplicated
CPT/HCPCS: 70450; 80048; 85025; 85652; 96374; 96375; 99283; A4216

== ENCOUNTER 2022-08-02 09:54 | Emergency (ER) | payer MEDICAID, SELFPAY ==
[2022-08-02 09:56] VITALS: BP 115/66; PULSE 113; RESP 18; TEMP 36.8; O2SAT 93; BMI 31.3
[2022-08-02 10:06] VITALS: O2SAT 95
--- NOTE | 2022-08-02 11:00 | RAD_ITS ---
STUDY: X-RAY CHEST REASON FOR EXAM: Female, 27 years old. Cough, sob TECHNIQUE: PA and lateral views of the chest. COMPARISON: Comparison is made with prior study dated 02/20/2002. FINDINGS: Hyperinflation. The lungs are clear. There is no demonstrated pleural abnormality. Normal size heart. Normal mediastinum and navneet. Normal visualized pulmonary arteries. Normal visualized aortic arch and descending thoracic aorta. Normal visualized thoracic spine. Normal visualized ribs, clavicles, and shoulders. There is no demonstrated abnormality of the visualized soft tissue structures of the upper abdomen. RAD/Chest PA and Lateral IMPRESSION: Hyperinflation. The lungs are clear. Electronically Signed: Manjit Gonzalez MD at 11:14 EDT ,
[2022-08-02 11:03] LABS: Absolute Lymphocyte Count 2.27 X10^3/uL (0.83-4.51); Absolute Neutrophil Count 6.4 X10^3/uL (2.0-7.7); Basophil# 0.04 X10^3/uL; Basophil% 0.4 % (0-1); Eosinophil# 0.37 X10^3/uL; Eosinophils% 3.7 % (0-5); Hematocrit 44.2 % (37-47); Hemoglobin 14.8 g/dL (12.0-15.0); Lymphocyte # 2.27 X10^3/ul (0.83-4.51); Lymphocyte % 22.9 % (19-41); Mean Corp Hgb Conc 33.5 g/dL (32-36); Mean Corpuscular Hgb 30.9 pg (27.0-32.0); Mean Corpuscular Volume 92.3 fL (81-99); Mean Platelet Vol. 9.7 fl (6.2-12.0); Monocyte% 8.1 % (0-10); NRBC Flagged by Analyzer 0 % (0-5); Neutrophil # 6.39 X10^3/uL (2.7-7.7); Neutrophil % 64.4 % (47-70); Platelet Count 297 K/mm3 (150-450); RBC Distribution Width CV 13.3 % (11.6-14.6); RBC Distribution Width SD 45.2 fl (35.1-43.9); Red Blood Count 4.79 M/mm3 (4.2-5.4); White Blood Count 9.9 K/mm3 (4.4-11.0)
[2022-08-02] MEDS: Ipratropium/Albuterol Sulfate 3 ML AMPUL.NEB INHALATION (11:10)
[2022-08-02 11:17] LABS: Albumin, Serum 3.3 g/dL (3.2-5.0); BUN 11 mg/dL (7-18); BUN/Creat Ratio 17.8 RATIO (10-20); Creatinine, Serum 0.62 mg/dL (0.55-1.02); EST Glomerular Filtration Rate 124 mL/min (>60); Est Glom Filt Rate - Afr Amer 150 mL/min (>60); Estimated Creatinine Clearance 152.62 ml/min; Glucose 83 mg/dL (74-106); Protein, Total 7.5 g/dL (6.4-8.2)
[2022-08-02 11:18] LABS: ALB/GLOB Ratio 0.8 RATIO (0.9-2.4); AST(SGOT) 8 U/L (15-37); Alanine Aminotransfer ALT/SGPT 14 U/L (13-56); Alkaline Phosphatase 91 U/L (45-117); Anion Gap 7 (5-15); Calcium,Total 9.1 mg/dL (8.5-10.1); Chloride 107 mmol/L (98-107); Globulin 4.2 g/dL (2.2-4.2); Potassium 3.7 mmol/L (3.5-5.1); Sodium Level 141 mmol/L (136-145)
[2022-08-02] MEDS: Ondansetron 4 MG/2 ML Vial IV (11:22)
[2022-08-02] MEDS: 0.9% Normal Saline 1,000 ML 1000 ML IV (11:22)
[2022-08-02 11:33] VITALS: PULSE 110; RESP 18
[2022-08-02 11:42] LABS: Color, Urine Yellow (Yellow); Glucose, Dipstick Normal (Normal); Leukocyte Esterase-Dipstick 500 /ul (Negative); Nitrite-Dipstick Negative (Negative); Occult Blood-Urine 10 /ul (Negative); Protein-Dipstick 30 mg/dl (Negative); Urine Clarity Sl. Cloudy (Clear); Urine Urobilinogen 4 mg/dl (Normal)
[2022-08-02 11:43] LABS: Urine Bilirubin Dipstick 1 mg/dL (Negative)
[2022-08-02 11:45] LABS: Ketone-Dipstick 150 mg/dl (Negative)
--- NOTE | 2022-08-02 11:47 | EDS_ITS ---
HPI History of Present Illness Chief Complaint: Shortness of Breath Informant: patient Narrative Narrative: Patient is a 27-year-old female with history of PE, DVT and asthma presenting with cough and concerns for dehydration. Patient states she is had generalized malaise and not feeling well for the past week and has been worse over the past 2 days. Patient states has had URI symptoms including cough, runny nose and bilateral ear pain. Has had nausea but no vomiting and diarrhea. She think she is dehydrated she is unable to take any fluids in the past 2 days. She denies any sick contacts. She had 2 negative COVID test, 1 week ago and another last night. She does feel like she has been wheezing. No other complaints at this time. Patient continues to smoke cigarettes. [facility] Medical History Back pain Home Medications albuterol sulfate 90 mcg/actuation aerosol inhaler (Ventolin HFA) 1 - 2 puff inhalation Q4H PRN PRN Wheezing #1 inh 08/02/22 [Rx Last Taken Unknown] nitrofurantoin monohydrate/macrocrystals 100 mg capsule (Macrobid) 100 mg PO Q12H 5 days #10 caps 08/02/22 [Rx Last Taken Unknown] ondansetron 4 mg disintegrating tablet 4 mg PO Q6H PRN nausea and vomiting #10 tabs 08/02/22 [Rx Last Taken Unknown] Allergy/AdvReac Type Severity Reaction Status Date / Time azithromycin Allergy Nausea Verified 08/02/22 10:01 [From Zithromax Z-Hemal] prednisolone AdvReac NEEDS Verified 08/02/22 10:01 FOLLOW-UP Social History household members: significant other Smoking Status: Current every day smoker tobacco type: cigarettes alcohol intake: current substance use type: does not use ROS ROS ED Constitutional Constitutional ED: Reports chills; Denies fever(s) Eyes Eyes: Denies change in vision ENT ENT ED: Reports ear pain, rhinorrhea and other; Denies sore throat Respiratory/Chest Respiratory/Chest: Reports cough and dyspnea Gastrointestinal Gastrointestinal: Reports nausea; Denies abdominal pain, constipation, diarrhea or vomiting Genitourinary Genitourinary ED: Denies dysuria or hematuria Musculoskeletal Musculoskeletal: Denies arthralgias or myalgias Integumentary Denies rash Neurologic Neurologic: Denies headache(s) or paresthesias Psychiatric Psychiatric: Denies anxiety or depression EXAM Physical Exam Const Vital Signs: 08/02/22 09:56 08/02/22 10:06 08/02/22 11:33 Temperature 98.2 F Temperature Source Temporal Pulse Rate 113 H 110 H Respiratory Rate 18 18 Respiratory Effort Normal Respiratory Pattern Normal Blood Pressure 115/66 Blood Pressure Mean 82 Pulse Ox 93 Oxygen Delivery Method Room Air Room Air Positive well nourished and well developed General Appearance ED: well developed and NAD HEENT Reports TM's clear and moist mucous membranes Tympanic Membrane ED: Yes TM's clear Eyes PERRL and EOMs intact bilaterally Neck supple and no JVD Chest Wall inspection of chest normal and palpation of chest normal Resp normal respiratory effort Effort and Inspection: Negative for retractions Auscultation: wheezes and diminished lung sounds Cardio regular rhythm and no murmurs Rate: tachycardic GI normal to inspection, nondistended, normoactive bowel sounds and non-tender Extremity normal to inspection General Extremety ED: Negative for edema or tenderness General Extremity: Negative for edema Neuro oriented x3 Motor Exam: general weakness Psych mental status grossly normal Skin no rashes or lesions noted MDM MDM MDM Narrative Medical decision making narrative: Evaluated for cough, generalized malaise and flulike symptoms. She is concerned for dehydration. Patient is given IV fluids, Zofran and Toradol in the emergency room. On evaluation she is wheezing diffusely. She is given a DuoNeb and on repeat evaluation she does have improvement of her respiratory sounds but still wheezing. She is given a second treatment with albuterol. Chest x-ray, 2 views, interpreted by myself as well as radiology does not show any acute infiltrate or other acute process. She is slightly hyperinflated. CBC and CMP largely unremarkable. Urinalysis does show 150 ketones consistent with some dehydration as well as pyuria with 2+ bacteria. Patient be started on Macrobid. Her only urinary symptom is increased odor of her urine. Low suspicion for pyelonephritis based on physical exam. Patient is counseled she needs to stop smoking and is given a dose of Decadron for her wheezing. She is willing to try it even though prednisone makes her anxious. She is not hypoxic. She is given a prescription for albuterol inhaler as well Zofran. Counseled return precautions. Patient verbalized agreement understands plan. Discharged home in stable condition. Lab Data Attestation: I reviewed the patient's lab results. Labs: Laboratory Results - last 24 hr 08/02/22 08/02/22 08/02/22 10:50 10:50 11:35 WBC 9.9 RBC 4.79 Hgb 14.8 Hct 44.2 MCV 92.3 MCH 30.9 MCHC 33.5 RDW Std Deviation 45.2 H RDW Coeff of Breanna 13.3 Plt Count 297 MPV 9.7 Immature Gran % (Auto) 0.500 Neut % (Auto) 64.4 Lymph % (Auto) 22.9 [place] % (Auto) 8.1 Eos % (Auto) 3.7 Baso % (Auto) 0.4 Absolute Neuts (auto) 6.4 Absolute Lymphs (auto) 2.27 Nucleated RBC % 0 Sodium 141 Potassium 3.7 Chloride 107 Carbon Dioxide 27.0 Anion Gap 7 BUN 11 Creatinine 0.62 Estim Creat Clear Calc 152.62 Est GFR (MDRD) Af Amer 150 Est GFR (MDRD) Non-Af 124 BUN/Creatinine Ratio 17.8 Glucose 83 Calcium 9.1 Total Bilirubin 0.50 AST 8 L ALT 14 Alkaline Phosphatase 91 Total Protein 7.5 Albumin 3.3 Globulin 4.2 Albumin/Globulin Ratio 0.8 L Urine Color Yellow Urine Clarity Sl. Cloudy Urine pH 5.0 Ur Specific [place] 1.030 Urine Protein 30 H Urine Glucose (UA) Normal Urine Ketones 150 A* Urine Occult Blood 10 H Urine Nitrite Negative Urine Bilirubin 1 H Urine Urobilinogen 4 H Ur Leukocyte Esterase 500 H Urine RBC 0-5 SEEN Urine WBC 25-50 SEEN Ur Squamous Epith Cells 0-5 SEEN Urine Bacteria 2+ Urine Mucus 2+ Urine Test Negative Radiography Chest X-Ray - ED: 2 View, Read by ED Physician, Read by Radiologist and No Acute Disease Diagnostic Testing: Clinical Impression(s) from Imaging Studies Chest X-Ray 08/02/22 11:00 IMPRESSION: Hyperinflation. The lungs are clear. Electronically Signed: Manjit Gonzalez MD at 11:14 EDT , Discharge Plan Triage Chief Complaint: Shortness of Breath ED Provider: Milana Mejia Dx/Rx/DC Orders Clinical Impression: Asthma exacerbation, Acute viral syndrome, Urinary tract infection Instructions: ED Asthma, Acute (Adult), ED Cystitis Female Adult Prescriptions: New albuterol sulfate [Ventolin HFA] 90 mcg/actuation HFA aerosol inhaler 1 - 2 puff inhalation Q4H PRN PRN (Reason: Wheezing) Qty: 1 0RF nitrofurantoin monohyd/m-cryst [Macrobid] 100 mg capsule 100 mg PO Q12H 5 Days Qty: 10 0RF Rx Instructions: must administer with a meal/food ondansetron 4 mg tablet,disintegrating 4 mg PO Q6H PRN (Reason: nausea and vomiting) Qty: 10 0RF Primary Care Provider: Care Physician,No Primary Referrals: Too Valiente MD [Med Staff - [employer]] - 3-5 Days if not improving Care Physician,No Primary [Primary Care Provider] - Activity Restrictions/Additional Instructions: Drink lots of fluids. Avoid any cigarette use. Alternate [id number] ibuprofen and Tylenol. Disposition Disposition: Home, Self Care
[2022-08-02 11:49] LABS: Red Blood Cells-Urine 0-5 SEEN /hpf (0-5)
[2022-08-02 11:50] LABS: Bacteria 2+ /hpf (None Seen); Internal QC Validated? YES +Cl - CLEAR BKGD; Mucous, Urine 2+ /hpf (<or=2+); Pregnancy, Urine Negative Negative; Squamous Epithelial Cells - UA 0-5 SEEN /hpf (5-10); White Blood Cells 25-50 SEEN /hpf (0-5)
[2022-08-02] MEDS: Albuterol 2.5 MG/3 ML VIAL.NEB. INHALATION (12:55)
[2022-08-02 12:56] VITALS: PULSE 108; RESP 18
[2022-08-02] MEDS: dexAMETHasone 4 MG Tablet 10 MG PO (13:08)
[2022-08-02] MEDS: Ketorolac 15 MG/ML Vial IV (13:08)
[2022-08-02] MEDS: Nitrofurantoin Macrocrystals 100 MG Capsule PO (13:09)
[2022-08-02 13:22] VITALS: BP 128/68; PULSE 72; RESP 16; O2SAT 98
== END 2022-08-02 13:26 | disposition home or self-care (01) ==
PROVIDERS: Emergency Provider Emergency Medicine; Visit Provider Emergency Medicine
DX: J45.901 Unspecified asthma with (acute) exacerbation (principal); N39.0 Urinary tract infection, site not specified; B34.9 Viral infection, unspecified; R11.0 Nausea; Z20.822 Contact with and (suspected) exposure to COVID-19; F17.210 Nicotine dependence, cigarettes, uncomplicated; Z86.711 Personal history of pulmonary embolism; Z86.718 Personal history of other venous thrombosis and embolism
CPT/HCPCS: 71046; 80053; 81001; 81025; 85025; 87635; 94640; 96361; 96374; 96375; 99284; J7030; A4216; J2405; U0003; U0005

== ENCOUNTER 2022-08-15 21:41 | Emergency (ER) | payer MEDICAID, SELFPAY ==
[2022-08-15 21:43] VITALS: BP 111/72; PULSE 112; RESP 15; TEMP 36.2; O2SAT 97; BMI 28.5
--- NOTE | 2022-08-15 22:22 | EDS_ITS ---
HPI History of Present Illness Chief Complaint: Shortness of Breath Informant: patient Narrative Narrative: Presents with a warm feeling in her right leg when she walks. This has been going on for about 1 to 3 days. She describes it as the anterior gonzalez of her r ight leg. She has not had swelling. She has not had pain. She does have history of DVTs and PEs after about 8 years ago. She has no longer on on anticoagulation. She also has a slight cough still. When she coughs hard she will get soreness of her chest. She was seen here about 2 or 3 weeks ago for this. She does feel as though she is getting progressively better. She is not actually short of breath. No syncope or presyncope. No fevers. No hemoptysis. No sputum production. She has not heard wheezing. She is a daily smoker and was counseled to quit. She is not on control or any hormonal therapy. [facility] Medical History Back pain Home Medications albuterol sulfate 90 mcg/actuation aerosol inhaler (Ventolin HFA) 1 - 2 puff inhalation Q4H PRN PRN Wheezing #1 inh 08/02/22 [Rx Last Taken Unknown] nitrofurantoin monohydrate/macrocrystals 100 mg capsule (Macrobid) 100 mg PO Q12H 5 days #10 caps 08/02/22 [Rx Last Taken Unknown] ondansetron 4 mg disintegrating tablet 4 mg PO Q6H PRN nausea and vomiting #10 tabs 08/02/22 [Rx Last Taken Unknown] albuterol sulfate 90 mcg/actuation aerosol inhaler (Ventolin HFA) 2 puff inhalation Q4H PRN PRN Wheezing ##1 08/16/22 [Rx Last Taken Unknown] Allergy/AdvReac Type Severity Reaction Status Date / Time azithromycin Allergy Nausea Verified 08/15/22 21:46 [From Zithromax Z-Hemal] prednisolone AdvReac NEEDS Verified 08/15/22 21:46 FOLLOW-UP Social History household members: significant other Smoking Status: Current every day smoker tobacco type: cigarettes alcohol intake: current substance use type: does not use ROS ROS ED Constitutional Constitutional ED: Denies chills or fever(s) Eyes Eyes: Denies change in vision ENT ENT ED: Reports rhinorrhea; Denies sore throat Cardiovascular Cardiovascular: Reports other Details: Occasional discomfort with a hard cough but not chest pain at other times. Respiratory/Chest Respiratory/Chest: Reports cough; Denies dyspnea or sputum Gastrointestinal Gastrointestinal: Denies abdominal pain, nausea or vomiting Genitourinary Genitourinary ED: Denies dysuria Musculoskeletal Musculoskeletal: Reports other Details: See history of present ; Denies myalgias Integumentary Denies rash Neurologic Neurologic: Denies headache(s), paresthesias or weakness Endocrine Endocrinology: Denies polydipsia or polyuria Hematologic/Lymphatic Hematologic/Lymphatic: Denies easy bleeding or easy bruising Allergic/Immunologic Allergic/Immunologic ED: Denies urticaria EXAM Physical Exam Const Vital Signs: 08/15/22 21:43 08/15/22 22:38 08/15/22 23:55 Temperature 97.1 F L Temperature Source Temporal Pulse Rate 112 H 101 H Respiratory Rate 15 18 Respiratory Effort Normal Respiratory Depth Normal Respiratory Pattern Normal Blood Pressure 111/72 Blood Pressure Mean 85 Pulse Ox 97 94 Oxygen Delivery Method Room Air Room Air Room Air Positive well nourished and well developed General Appearance ED: well developed and NAD; Negative for cyanotic, diaphoretic or pallor HEENT Reports moist mucous membranes Eyes General Eye ED: Negative for scleral icterus Neck supple and no JVD Neck Narrative: No stridor Chest Wall inspection of chest normal Resp normal respiratory effort and clear to auscultation bilaterally Auscultation: Negative for rales, rhonchi or wheezes Cardio regular rate and regular rhythm Rate: other Other Details: And had a heart rate of 107 on EKG. She counts out to 94 at this time. GI normal to inspection, nondistended, normoactive bowel sounds and non-tender Back/Spine no CVA tenderness Extremity normal to inspection Extremity Narrative: No asymmetry of size of the lower legs. She describes anterior gonzalez as where she gets the warm symptoms. There is no cord or tenderness. No distended veins. Neuro Sensorium / Orientation: alert Psych mental status grossly normal Skin General Skin Exam: Negative for jaundice or pallor MDM MDM MDM Narrative Medical decision making narrative: Patient's blood work show normal CBC including white count and platelets. D- dimer is normal but at the high limit of normal. Electrolytes are normal other than minimally low potassium. Chest x-ray does show a new right infrahilar opacity that is different from the seventh of this month when I look at them. With her tachycardia, new opacity without fever or white count, and history of PE I will do a CTA. Even though her D-dimer is within normal she has a higher risk than average. CT scan showed some bronchial wall thickening and bronchial stenosis. There is no sign of pneumonia. She has no sputum production fevers or elevated white count. I do not think we need antibiotics at this point. We will encourage smoking cessation. We will make sure she has a albuterol inhaler. She should return if she develops fevers chills or sputum production. Lab Data Attestation: I reviewed the patient's lab results. Labs: Laboratory Results - last 24 hr 08/15/22 08/15/22 08/15/22 22:32 22:32 22:32 WBC 8.9 RBC 4.80 Hgb 14.8 Hct 44.1 MCV 91.9 MCH 30.8 MCHC 33.6 RDW Std Deviation 43.2 RDW Coeff of Breanna 12.6 Plt Count 275 MPV 10.5 Immature Gran % (Auto) 0.200 Neut % (Auto) 61.8 Lymph % (Auto) 29.8 [place] % (Auto) 5.7 Eos % (Auto) 2.3 Baso % (Auto) 0.2 Absolute Neuts (auto) 5.5 Absolute Lymphs (auto) 2.65 Nucleated RBC % 0 D-Dimer Quant (PE/DVT) 0.46 Sodium 140 Potassium 3.3 L Chloride 106 Carbon Dioxide 26.0 Anion Gap 8 BUN 13 Creatinine 0.61 Estim Creat Clear Calc 141.64 Est GFR (MDRD) Af Amer 153 Est GFR (MDRD) Non-Af 126 BUN/Creatinine Ratio 21.4 H Glucose 83 Calcium 9.0 Serum , Qual 08/15/22 22:32 WBC RBC Hgb Hct MCV MCH MCHC RDW Std Deviation RDW Coeff of Breanna Plt Count MPV Immature Gran % (Auto) Neut % (Auto) Lymph % (Auto) [place] % (Auto) Eos % (Auto) Baso % (Auto) Absolute Neuts (auto) Absolute Lymphs (auto) Nucleated RBC % D-Dimer Quant (PE/DVT) Sodium Potassium Chloride Carbon Dioxide Anion Gap BUN Creatinine Estim Creat Clear Calc Est GFR (MDRD) Af Amer Est GFR (MDRD) Non-Af BUN/Creatinine Ratio Glucose Calcium Serum , Qual NEGATIVE Radiography Diagnostic Testing: Clinical Impression(s) from Imaging Studies Venous Duplex 08/15/22 22:29 IMPRESSION: undefined Chest X-Ray 08/15/22 22:39 IMPRESSION: New right infrahilar opacity, consistent with infection. Electronically Signed: Rolly Girard MD at 22:55 EDT , Chest CTA 08/15/22 23:05 IMPRESSION: 1. No pulmonary embolism to the subsegmental level. 2. Bronchial wall thickening and focal bronchial stenoses in the right middle and lower lobes, may be related to bronchitis or small airways disease. Electronically Signed: Rolly Girard MD at 23:55 EDT , Single view chest x-ray looked at by me and read by radiology shows a right infrahilar infiltrate. I compared this to the August 02 image and it is new. CTA follow-up to x-ray looked at by me and read by radiology shows no pulmonary embolism. But there was bronchial wall thickening and bronchial stenosis in the right. No indication of acute pneumonia though. I got report that the ultrasound of the lower extremity is also negative for DVT. EKG Initial EKG: Comments: EKG done for cough and history of PE with tachycardia. EKG shows a sinus tach at 107. No ventricular ectopy. No acute ST elevation or depression. ID interval, QRS duration and QTc are normal. Discharge Plan Triage Chief Complaint: Shortness of Breath ED Provider: Michele Zafar Dx/Rx/DC Orders Clinical Impression: Bronchial stenosis, right, Acute leg pain Instructions: ED Bronchitis, No Antibiotic (Adult) Prescriptions: New albuterol sulfate [Ventolin HFA] 90 mcg/actuation HFA aerosol inhaler 2 puff inhalation Q4H PRN PRN (Reason: Wheezing) Qty: 1 0RF No Action albuterol sulfate [Ventolin HFA] 90 mcg/actuation HFA aerosol inhaler 1 - 2 puff inhalation Q4H PRN PRN (Reason: Wheezing) Qty: 1 0RF nitrofurantoin monohyd/m-cryst [Macrobid] 100 mg capsule 100 mg PO Q12H 5 Days Qty: 10 0RF Rx Instructions: must administer with a meal/food ondansetron 4 mg tablet,disintegrating 4 mg PO Q6H PRN (Reason: nausea and vomiting) Qty: 10 0RF Primary Care Provider: Care Physician,No Primary Referrals: Fast,Katya, DO [Med Staff - [employer] Support Technician] - 1 Week if not improving Care Physician,No Primary [Primary Care Provider] - Disposition Disposition: Home, Self Care
--- NOTE | 2022-08-15 22:29 | US_ITS ---
EXAM: US bilateral lower extremity venous Doppler. HISTORY: CHEST PAIN AND ANTERIOR RIGHT CALF and quot;WARMTH and quot; TECHNIQUE: US Venous Duplex LE Bilat Complete COMPARISON: None. LIMITATIONS: None. FLOW: Normal. THROMBUS: None. AUGMENTATION: Normal. FLUID COLLECTIONS: None. SUPERFICIAL VEINS: Normal. OTHER: None. CONCLUSION: No evidence of deep venous thrombosis of the bilateral lower extremities. Electronically Signed: Rolly Girard MD at 23:45 EDT , US/Venous Duplex Imag/Robinson Extrem IMPRESSION: undefined
[2022-08-15 22:38] VITALS: O2SAT 99
--- NOTE | 2022-08-15 22:39 | RAD_ITS ---
INDICATION: cough EXAMINATION/TECHNIQUE: X-RAY - XR Chest 1 View COMPARISON: 08/02/2022 FINDINGS: LINES/DEVICES: None. LUNGS: New right infrahilar hazy opacity. No edema or effusion. No pneumothorax. MEDIASTINUM AND CARDIOVASCULAR STRUCTURES: Cardiac silhouette not enlarged. Central airways and mediastinal contour are unremarkable. BONES AND SOFT TISSUES: Unremarkable. RAD/Chest 1 View (Portable) IMPRESSION: New right infrahilar opacity, consistent with infection. Electronically Signed: Rolly Girard MD at 22:55 EDT ,
[2022-08-15 22:52] LABS: D-Dimer Quantitative (DVT/PE) 0.46 FEU/ug/m (0.27-0.49)
[2022-08-15 22:58] LABS: Absolute Lymphocyte Count 2.65 X10^3/uL (0.83-4.51); Absolute Neutrophil Count 5.5 X10^3/uL (2.0-7.7); Basophil# 0.02 X10^3/uL; Basophil% 0.2 % (0-1); Eosinophils% 2.3 % (0-5); Hematocrit 44.1 % (37-47); Hemoglobin 14.8 g/dL (12.0-15.0); Lymphocyte # 2.65 X10^3/ul (0.83-4.51); Lymphocyte % 29.8 % (19-41); Mean Corp Hgb Conc 33.6 g/dL (32-36); Mean Corpuscular Hgb 30.8 pg (27.0-32.0); Mean Corpuscular Volume 91.9 fL (81-99); Mean Platelet Vol. 10.5 fl (6.2-12.0); Monocyte# 0.51 X10^3/uL; Monocyte% 5.7 % (0-10); NRBC Flagged by Analyzer 0 % (0-5); Neutrophil # 5.48 X10^3/uL (2.7-7.7); Neutrophil % 61.8 % (47-70); Platelet Count 275 K/mm3 (150-450); RBC Distribution Width CV 12.6 % (11.6-14.6); RBC Distribution Width SD 43.2 fl (35.1-43.9); White Blood Count 8.9 K/mm3 (4.4-11.0)
[2022-08-15 23:01] LABS: Anion Gap 8 (5-15); BUN 13 mg/dL (7-18); BUN/Creat Ratio 21.4 RATIO (10-20); Chloride 106 mmol/L (98-107); Creatinine, Serum 0.61 mg/dL (0.55-1.02); EST Glomerular Filtration Rate 126 mL/min (>60); Est Glom Filt Rate - Afr Amer 153 mL/min (>60); Estimated Creatinine Clearance 141.64 ml/min; Glucose 83 mg/dL (74-106); Potassium 3.3 mmol/L (3.5-5.1); Sodium Level 140 mmol/L (136-145)
--- NOTE | 2022-08-15 23:05 | CT_ITS ---
STUDY: CTA CHEST REASON FOR EXAM: Female, 27 years old. pe RADIATION DOSAGE (If Supplied By Facility): CTDIvol = ( 7.18 ) mGy, DLP = ( 173.89 ) mGycm TECHNIQUE: The examination was performed with the intravenous administration of IV 75mL [id number]-[id number]. Post-processing of the angiographic images was performed, with multiplanar reformation and 3D reconstruction. Individualized dose optimization techniques were used for this CT. COMPARISON: None. FINDINGS: LUNGS: Moderate to severe focal stenosis of the origin of the right middle lobe bronchus and mild to moderate stenosis at the origin of the right lower lobe bronchus. Mild bilateral bronchial wall thickening. Subsegmental atelectasis in the right middle lobe. AORTA/GREAT VESSELS: No aneurysm.. PULMONARY VESSELS: Normal. PLEURA: Normal. MEDIASTINUM: Normal. UPPER ABDOMEN: Normal. BONES/SOFT TISSUES: Normal. OTHER: None. CT/CTA Chest W/WO Contrast IMPRESSION: 1. No pulmonary embolism to the subsegmental level. 2. Bronchial wall thickening and focal bronchial stenoses in the right middle and lower lobes, may be related to bronchitis or small airways disease. Electronically Signed: Rolly Girard MD at 23:55 EDT ,
[2022-08-15 23:06] LABS: Internal QC Validated? YES +Cl - CLEAR BKGD; Pregnancy, Serum, hCG Quali. NEGATIVE Negative
[2022-08-15 23:55] VITALS: PULSE 101; RESP 18; O2SAT 94
[2022-08-16 00:36] VITALS: BP 119/90; PULSE 110; RESP 16; O2SAT 98
== END 2022-08-16 00:38 | disposition home or self-care (01) ==
PROVIDERS: Emergency Provider Emergency Medicine; Visit Provider Emergency Medicine
DX: R06.02 Shortness of breath (principal); J98.09 Other diseases of bronchus, not elsewhere classified; F17.210 Nicotine dependence, cigarettes, uncomplicated; M79.601 Pain in right arm; Z86.718 Personal history of other venous thrombosis and embolism
CPT/HCPCS: 71045; 71275; 80048; 84703; 85025; 85379; 93005; 93970; 99284; Q9967; A4216

== ENCOUNTER → 2024-01-10 | Outpatient (CLI) | payer MEDICAID, SELFPAY ==
[2024-01-10 14:06] LABS: Bacteria 0 SEEN /hpf (None Seen); Red Blood Cells-Urine 0 SEEN /hpf (0-5)
[2024-01-10 15:59] LABS: AST(SGOT) 12 U/L (15-37); Alanine Aminotransfer ALT/SGPT 14 U/L (13-56); Albumin, Serum 3.7 g/dL (3.2-5.0); Alkaline Phosphatase 68 U/L (45-117); Amylase 39 U/L (25-115); Anion Gap 3 (5-15); BUN 13 mg/dL (7-18); BUN/Creat Ratio 20.5 RATIO (10-20); Calcium,Total 9.1 mg/dL (8.5-10.1); Chloride 110 mmol/L (98-107); Cholesterol 147 mg/dL (200); Creatinine, Serum 0.64 mg/dL (0.55-1.02); EST Glomerular Filtration Rate 119 mL/min (>60); Est Glom Filt Rate - Afr Amer 144 mL/min (>60); Ferritin 183 ng/mL (8-252); Globulin 3.8 g/dL (2.2-4.2); Glucose 94 mg/dL (74-106); High Density Lipoprotein 45 mg/dL; Iron 71 ug/dL (50-170); Iron Binding Capacity,Total 289 ug/dL (250-450); Lipase 24 U/L (13-75); Potassium 3.9 mmol/L (3.5-5.1); Protein, Total 7.5 g/dL (6.4-8.2); Sodium Level 140 mmol/L (136-145); T4 Total, Thyroxin 9.8 ug/dL (4.8-13.9); Thyroid Stim Hormone (TSH) 1.01 uIU/mL (0.358-3.74); Triglycerides 67 mg/dL; Very Low Density Lipoprotein 13 mg/dL (5-40)
[2024-01-10 16:02] LABS: Hemoglobin A1c 5.2 % (3.8-5.6)
[2024-01-10 16:45] LABS: HIV - WCH Non-Reactive (Nonreactive); Hepatitis C Antibody Non-Reactive (Nonreactive); Syphilis Antibodies Non-reactive
[2024-01-10 17:05] LABS: Color, Urine Yellow (Yellow); Glucose, Dipstick Normal (Normal); Ketone-Dipstick 15 mg/dl (Negative); Leukocyte Esterase-Dipstick 500 /ul (Negative); Nitrite-Dipstick Negative (Negative); Occult Blood-Urine Negative /ul (Negative); Protein-Dipstick 15 mg/dl (Negative); Specific Gravity, Urine 1.015 (1.002-1.030); Urine Bilirubin Dipstick Negative (Negative); Urine Clarity Clear (Clear); Urine Urobilinogen 1 mg/dl (Normal)
[2024-01-10 17:25] LABS: Mucous, Urine 1+ /hpf (<or=2+); Squamous Epithelial Cells - UA 0-5 SEEN /hpf (5-10); White Blood Cells 0-5 SEEN /hpf (0-5)
== END | disposition home or self-care (01) ==
PROVIDERS: PCP Nurse Practitioner; Referring Provider Nurse Practitioner; Visit Provider Nurse Practitioner
DX: R10.9 Unspecified abdominal pain (principal); F32.A Depression, unspecified; Z87.898 Personal history of other specified conditions; Z11.3 Encounter for screening for infections with a predominantly sexual mode of transmission; I82.90 Acute embolism and thrombosis of unspecified vein
CPT/HCPCS: 36415; 80053; 80061; 81001; 82150; 82728; 83036; 83540; 83550; 83690; 84436; 84443; 86703; 86780; 86803; 87491; 87591

== ENCOUNTER 2024-02-10 15:57 | Emergency (ER) | payer MEDICAID, SELFPAY ==
[2024-02-10 15:58] VITALS: BP 115/81; PULSE 142; RESP 16; TEMP 36.2; O2SAT 100; BMI 26.4
--- NOTE | 2024-02-10 16:21 | ED.VIS.DENTA ---
HPI <ELIJAH Barnard - Last Filed: 02/10/24 22:10> History of Present Illness Chief Complaint: Dental Narrative Narrative: 28-year-old female states she woke up a few days ago and one of her left upper teeth had cracked off. Yesterday she developed pain in the cracked tooth and facial swelling. The swelling seems worse today. She has no difficulty swallowing or breathing. No fever or chills. PFSH <ELIJAH Barnard - Last Filed: 02/10/24 22:10> FORMERLY [facility], 1928–1983 Medical History (Updated 02/10/24 @ 22:10 by ELIJAH Barnard) Alcohol abuse Back pain Chronic migraine Drug abuse Home Medications hydrocortisone 1 % lotion (Anti-Itch (hydrocortisone)) 1 applic topical BID PRN itching #120 mL 01/10/24 [Rx Last Taken Unknown] hydroxyzine HCl 25 mg tablet 25 mg PO TID PRN anxiety #30 tabs 01/10/24 [Rx Last Taken Unknown] pantoprazole 40 mg tablet,delayed release (Protonix) 40 mg PO DAILY #30 tabs 01/10/24 [Rx Last Taken Unknown] venlafaxine 37.5 mg capsule,extended release 24 hr 37.5 mg PO QHS #30 caps 01/10/24 [Rx Last Taken Unknown] chlorhexidine gluconate 0.12 % mouthwash 15 ml buccal BID #473 mL 02/10/24 [Rx Last Taken Unknown] hydrocodone-acetaminophen 5-325mg 5mg-325mg 1 tab PO Q6H PRN PRN Pain 3 days #10 TABLETS 02/10/24 [Rx Last Taken Unknown] penicillin V potassium 500 mg tablet 500 mg PO 4X/DAY #40 tabs 02/10/24 [Rx Last Taken Unknown] Allergy/AdvReac Type Severity Reaction Status Date / Time prednisolone AdvReac NEEDS Verified 01/10/24 12:43 FOLLOW-UP Family History (Updated 01/10/24 @ 12:48 by Susan Levine MA) Father Diabetes Social History (Updated 01/10/24 @ 12:51 by Susan Levine MA) adopted: No household members: significant other current occupational status: unemployed pets and animals: Yes Smoking Status: Current every day smoker tobacco type: cigarettes Tobacco: How many years used: 11 alcohol intake: never substance use type: former substance user Date of last use: 09/2023 and marijuana caffeine: No frequency: does not exercise seatbelt use: always do you feel safe at home: Yes ROS <ELIJAH Barnard - Last Filed: 02/10/24 22:10> ROS ED ROS Narrative Constitutional: Negative for fever, chills, malaise. ENT: Negative for sore throat. Neuro: Negative for headache. EXAM <ELIJAH Barnard - Last Filed: 02/10/24 22:10> Physical Exam Narrative Exam Narrative: CONST: Patient sitting in no acute distress. EYES: Normal inspection. ENT: Left upper incisor is cracked, dental decay and signs of inflamed gingiva. No periapical abscess, no trismus or tongue elevation, sublingual space is soft, no drooling or stridor, normal posterior oropharynx. Mild left upper cheek swelling. No erythema or fluctuance. No submental or submandibular swelling. Trachea midline. NECK: Normal inspection. SKIN: Color normal, no rash, warm, dry, intact. NEURO: Alert and oriented and answering questions appropriately. PSYCH: Normal affect. Const Vital Signs: 02/10/24 15:58 02/10/24 17:01 02/10/24 17:14 Temperature 97.1 F L 97.6 F L Temperature Source Temporal Pulse Rate 142 H 115 H 104 H Respiratory Rate 16 16 Blood Pressure 115/81 H 134/78 H Blood Pressure Mean 92 96 Pulse Ox 100 99 Oxygen Delivery Method Room Air <Dr. Omar Treadwell DO - Last Filed: 02/10/24 17:11> Physical Exam Const Vital Signs: 02/10/24 15:58 02/10/24 17:01 02/10/24 17:14 Temperature 97.1 F L 97.6 F L Temperature Source Temporal Pulse Rate 142 H 115 H 104 H Respiratory Rate 16 16 Blood Pressure 115/81 H 134/78 H Blood Pressure Mean 92 96 Pulse Ox 100 99 Oxygen Delivery Method Room Air MDM <ELIJAH Barnard - Last Filed: 02/10/24 22:10> MDM MDM Narrative Medical decision making narrative: Patient has left upper cheek facial swelling. Her tooth cracked several days ago. There is dental decay especially in the left upper incisor. Mild facial swelling. No cellulitis or abscess. There is no drainable periapical abscess or signs of Den angina. She does have signs of gingivitis. I prescribed penicillin VK, chlorhexidine, and short prescription of [place]. I recommended follow-up with a dentist and discussed return precautions. She was discharged in stable condition. <Dr. Omar Treadwell, DO - Last Filed: 02/10/24 17:11> MDM Treatment and Re-Evaluation Narrative: I have personally performed a face to face assessment of the patient and have reviewed the SEU Note. I performed a substantive portion of the visit including all aspects of the following. My mendoza findings include: History is 28-year-old female with facial swelling left upper face. Patient states she had a tooth fall apart several days ago is now is having pain and swelling. Will Tylenol Motrin not effective. She states that prior to tooth remains and that after she ate some pizza lunchables she began to have pain and swelling. Exam is I do not appreciate any focal abscess is drainable in the gumline. There is a whitish was gingivitis like appearance to the gumline. There is dental decay very focally the left upper incisor. There is some mild facial swelling that erythema. No significant trismus. Medical Decison Making patient will be started on antibiotics and pain medication. Would also recommend some chlorhexidine rinses. She is to follow-up with dentistry soon as Discharge Plan Triage Chief Complaint: Dental ED Midlevel Provider: Sharon Shearer ED Provider: Omar Treadwell Dx/Rx/DC Orders Clinical Impression: Dental abscess, Cracked tooth, Gingivitis Instructions: Dental Abscess Prescriptions: New penicillin V potassium 500 mg tablet 500 mg PO 4X/DAY Qty: 40 0RF chlorhexidine gluconate 0.12 % mouthwash 15 ml buccal BID Qty: 473 0RF hydrocodone-acetaminophen 5-325 mg tablet 1 tab PO Q6H PRN PRN (Reason: Pain) 3 Days Qty: 10 0RF No Action venlafaxine 37.5 mg capsule,extended release 24hr 37.5 mg PO QHS Qty: 30 1RF hydroxyzine HCl 25 mg tablet 25 mg PO TID PRN (Reason: anxiety) Qty: 30 1RF pantoprazole [Protonix] 40 mg tablet,delayed release (DR/EC) 40 mg PO DAILY Qty: 30 1RF hydrocortisone [Anti-Itch (HC)] 1 % lotion 1 applic topical BID PRN (Reason: itching) Qty: 120 0RF Rx Instructions: apply to rectum as needed up to twice a day for hemorrhoids, do not use consecutively for more than 7 days Primary Care Provider: Mariluz Robison Referrals: Mariluz Robison, [facility] [Primary Care Provider] - Activity Restrictions/Additional Instructions: Alternate Tylenol and ibuprofen every 3 hours for pain. Follow-up with a dentist. Disposition Disposition: Home, Self Care Discharge Date/Time: 02/10/24 17:15
[2024-02-10] MEDS: Penicillin Vk 250 MG Tablet 500 MG PO (16:27)
[2024-02-10] MEDS: Ketorolac 10 MG Tablet PO (16:41)
[2024-02-10 17:01] VITALS: PULSE 115
[2024-02-10 17:14] VITALS: BP 134/78; PULSE 104; RESP 16; TEMP 36.4; O2SAT 99
== END 2024-02-10 17:15 | disposition home or self-care (01) ==
PROVIDERS: Emergency Provider Emergency Medicine; PCP Nurse Practitioner; Visit Provider Emergency Medicine
DX: K04.7 Periapical abscess without sinus (principal); K02.9 Dental caries, unspecified; F17.210 Nicotine dependence, cigarettes, uncomplicated; Z79.899 Other long term (current) drug therapy
CPT/HCPCS: 99283

== ENCOUNTER 2024-03-28 19:52 | Emergency (ER) | payer MEDICAID, SELFPAY ==
[2024-03-28 19:53] VITALS: BP 122/73; PULSE 98; RESP 18; TEMP 36.2; O2SAT 100; BMI 25.6
--- NOTE | 2024-03-28 20:18 | EDS_ITS ---
HPI History of Present Illness Chief Complaint: General Illness Informant: patient Narrative Narrative: Patient presenting with multiple complaints. The acute wants are that she has a burning sensation, not pain, and her left flank and low back that has been there for couple days, and today she has had 4 or 5 bouts of a significant amount of watery nonbloody diarrhea. She has felt a little lightheaded but no syncope. No fevers or chills. No recent antibiotics or travel out of the area or eating raw foods. She denies any nausea or vomiting. She also endorses epigastric discomfort and sometimes in the right upper quadrant that has been present most days for the past 7 months or more. She has noticed no patterns with foods. She denies melena or hematochezia. She also states she has urinary urgency for the last 7 or 8 months since she was diagnosed with a prolapsed uterus. She has had some recent burning when she urinates but states that happens off and on. Menstrual cycles been heavy and regular. [facility] Medical History (Updated 03/28/24 @ 21:[address] Mike Alanis MD) Alcohol abuse Anxiety and depression Back pain Chronic migraine Drug abuse DVT (deep venous thrombosis) History of intravenous drug abuse Pulmonary embolism Uterine prolapse Home Medications hydrocortisone 1 % lotion (Anti-Itch (hydrocortisone)) 1 applic topical BID PRN itching #120 mL 01/10/24 [Rx Last Taken Unknown] hydroxyzine HCl 25 mg tablet 25 mg PO TID PRN anxiety #30 tabs 01/10/24 [Rx Last Taken Unknown] pantoprazole 40 mg tablet,delayed release (Protonix) 40 mg PO DAILY #30 tabs 01/10/24 [Rx Last Taken Unknown] venlafaxine 37.5 mg capsule,extended release 24 hr 37.5 mg PO QHS #30 caps 01/10/24 [Rx Last Taken Unknown] chlorhexidine gluconate 0.12 % mouthwash 15 ml buccal BID #473 mL 02/10/24 [Rx Last Taken Unknown] hydrocodone-acetaminophen 5-325mg 5mg-325mg 1 tab PO Q6H PRN PRN Pain 3 days #10 TABLETS 02/10/24 [Rx Last Taken Unknown] penicillin V potassium 500 mg tablet 500 mg PO 4X/DAY #40 tabs 02/10/24 [Rx Last Taken Unknown] Allergy/AdvReac Type Severity Reaction Status Date / Time prednisolone AdvReac NEEDS Verified 03/28/24 19:53 FOLLOW-UP Family History (Updated 01/10/24 @ 12:48 by Susan Levine MA) Father Diabetes Social History adopted: No household members: significant other current occupational status: unemployed pets and animals: Yes Smoking Status: Current every day smoker tobacco type: cigarettes Tobacco: How many years used: 11 alcohol intake: never substance use type: former substance user Date of last use: 09/2023 and marijuana caffeine: No frequency: does not exercise seatbelt use: always do you feel safe at home: Yes ROS ROS ED Constitutional Constitutional ED: Reports malaise; Denies chills or fever(s) Eyes Eyes: Denies change in vision or diplopia ENT ENT ED: Denies rhinorrhea or sore throat Cardiovascular Cardiovascular: Reports lightheadedness; Denies chest pain or palpitations Respiratory/Chest Respiratory/Chest: Denies cough or dyspnea Gastrointestinal Gastrointestinal: Reports abdominal pain and diarrhea; Denies nausea or vomiting Genitourinary Genitourinary ED: Reports as per HPI, dysuria, flank pain, urinary frequency and urinary urgency; Denies hematuria Musculoskeletal Musculoskeletal: Reports back pain; Denies neck pain Integumentary Denies abscess or rash Neurologic Neurologic: Denies headache(s), paresthesias or weakness Psychiatric Psychiatric: Denies suicidal ideation or suicidal thoughts EXAM Physical Exam Const Vital Signs: 03/28/24 19:53 Temperature 97.2 F L Temperature Source Temporal Pulse Rate 98 Respiratory Rate 18 Blood Pressure 122/73 H Blood Pressure Mean 89 Pulse Ox 100 Positive well nourished and well developed Constitutional Narrative: Well-appearing, ambulatory without any difficulty General Appearance ED: well developed and NAD HEENT Reports moist mucous membranes normocephalic and atraumatic Eyes PERRL and EOMs intact bilaterally Neck full ROM and supple Resp normal respiratory effort and clear to auscultation bilaterally Cardio regular rate, regular rhythm and no murmurs GI non-distended GI Narrative: Minimal tenderness to palpation epigastrium and suprapubic areas but otherwise benign abdomen. No guarding or rebound tenderness. Auscultation: normoactive bowel sounds Palpation: soft Back/Spine no CVA tenderness General Back: other FROM Extremity normal to inspection General Extremety ED: Negative for edema, pulses abnormal or tenderness General Extremity: Negative for edema or pulses abnormal Neuro oriented x3, CN's II-XII intact bilaterally and no sensory deficits noted Sensorium / Orientation: awake and alert Motor Exam: strength 5/5 throughout Psych Mood & Affect: anxious Skin no rashes or lesions noted and no wounds MDM MDM MDM Narrative Medical decision making narrative: Patient sounds like she is having some type of functional GI etiology of her abdominal pain. I do not think a CT is indicated at this time. Obtained some blood work including liver enzymes and urinalysis with a while we gave her some IV fluids and dicyclomine for the diarrhea and pain. Blood work is unremarkable. There is no leukocytosis or leftward shift. Liver enzymes are also normal. No sign of significant dehydration. She felt a little better after the medications but still had burning in her epigastrium. I had a long discussion with her about how my suspicion is that this is a functional etiology of her pain. I think she has 2 separate issues going on, functional discomfort in her upper abdomen but she has uterine prolapse and states that she lost a large amount of weight, like 300 pounds, and certainly that may have contributed to her uterine prolapse. She wants to seek hysterectomy which certainly she can do separate from this, but she has omeprazole at home and I recommend that she take it every day for at least 2 weeks to see if it makes a difference in her upper abdominal discomfort. I will give her a GI cocktail and Imodium prior to discharge, but I will refer her to GI, in my opinion I think an EGD might be more diagnostic for her than a CT of abdomen/pelvis which I do not think she is needing emergently right now. She is comfortable with that overall plan. Lab Data Attestation: I reviewed the patient's lab results. Labs: Laboratory Results - last 24 hr 03/28/24 20:25 WBC 7.9 RBC 4.52 Hgb 13.2 Hct 40.8 MCV 90.3 MCH 29.2 MCHC 32.4 RDW Std Deviation 41.1 RDW Coeff of [place] 12.4 Plt Count 249 MPV 9.8 Immature Gran % (Auto) 0.400 Neut % (Auto) 56.9 Lymph % (Auto) 33.8 Clinch % (Auto) 6.5 Eos % (Auto) 2.0 Baso % (Auto) 0.4 Absolute Neuts (auto) 4.5 Absolute Lymphs (auto) 2.66 Nucleated RBC % 0 Sodium 140 Potassium 3.6 Chloride 107 Carbon Dioxide 30.0 Anion Gap 3 L BUN 9 Creatinine 0.66 Estim Creat Clear Calc 100.85 Est GFR (MDRD) Af Amer 136 Est GFR (MDRD) Non-Af 112 BUN/Creatinine Ratio 13.5 Glucose 88 Calcium 8.6 Total Bilirubin 0.20 AST 10 L ALT 16 Alkaline Phosphatase 55 Total Protein 6.8 Albumin 3.5 Globulin 3.3 Albumin/Globulin Ratio 1.1 Urine Color Yellow Urine Clarity Clear Urine pH 7.0 Ur Specific [place] 1.015 Urine Protein Negative Urine Glucose (UA) Normal Urine Ketones Negative Urine Occult Blood Negative Urine Nitrite Negative Urine Bilirubin Negative Urine Urobilinogen Normal Ur Leukocyte Esterase 25 H Urine RBC 0 SEEN Urine WBC 0 SEEN Ur Squamous Epith Cells 0-5 SEEN Urine Bacteria 0 SEEN Urine Mucus 0 SEEN Urine Test Negative Discharge Plan Triage Chief Complaint: General Illness ED Provider: Mike Alanis Dx/Rx/DC Orders Clinical Impression: Acute left flank pain, Urinary urgency, Acute diarrhea, Acute epigastric pain Instructions: ED Diarrhea, Unknown Cause, ED Epigastric Pain Uncertain Cause Prescriptions: No Action venlafaxine 37.5 mg capsule,extended release 24hr 37.5 mg PO QHS Qty: 30 1RF hydroxyzine HCl 25 mg tablet 25 mg PO TID PRN (Reason: anxiety) Qty: 30 1RF pantoprazole [Protonix] 40 mg tablet,delayed release (DR/EC) 40 mg PO DAILY Qty: 30 1RF hydrocortisone [Anti-Itch (HC)] 1 % lotion 1 applic topical BID PRN (Reason: itching) Qty: 120 0RF Rx Instructions: apply to rectum as needed up to twice a day for hemorrhoids, do not use consecutively for more than 7 days penicillin V potassium 500 mg tablet 500 mg PO 4X/DAY Qty: 40 0RF chlorhexidine gluconate 0.12 % mouthwash 15 ml buccal BID Qty: 473 0RF hydrocodone-acetaminophen 5-325 mg tablet 1 tab PO Q6H PRN PRN (Reason: Pain) 3 Days Qty: 10 0RF Primary Care Provider: Mariluz Robison Referrals: Friend,Yunier, DO [Med Staff - Active Staff] - (call for appt if you have persistent upper abd pain after at least 2 weeks of daily omeprazole) Mariluz Robison, [facility] [employer] [facility] [Primary Care Provider] - 1 Week if not improving
[2024-03-28 20:31] LABS: Bacteria 0 SEEN /hpf (None Seen); Mucous, Urine 0 SEEN /hpf (<or=2+); Red Blood Cells-Urine 0 SEEN /hpf (0-5); White Blood Cells 0 SEEN /hpf (0-5)
[2024-03-28] MEDS: 0.9% Normal Saline (500mL Bag) 500 ML 999 ML IV (20:31)
[2024-03-28] MEDS: Dicyclomine 10 MG Capsule 20 MG PO (20:31)
[2024-03-28] MEDS: Ketorolac 15 MG/ML Vial IV (20:32)
[2024-03-28 20:33] LABS: Absolute Lymphocyte Count 2.66 X10^3/uL (0.83-4.51); Absolute Neutrophil Count 4.5 X10^3/uL (2.0-7.7); Basophil# 0.03 X10^3/uL; Basophil% 0.4 % (0-1); Eosinophil# 0.16 X10^3/uL; Hematocrit 40.8 % (37-47); Hemoglobin 13.2 g/dL (12.0-15.0); Lymphocyte # 2.66 X10^3/ul (0.83-4.51); Lymphocyte % 33.8 % (19-41); Mean Corp Hgb Conc 32.4 g/dL (32-36); Mean Corpuscular Hgb 29.2 pg (27.0-32.0); Mean Corpuscular Volume 90.3 fL (81-99); Mean Platelet Vol. 9.8 fl (6.2-12.0); Monocyte# 0.51 X10^3/uL; Monocyte% 6.5 % (0-10); NRBC Flagged by Analyzer 0 % (0-5); Neutrophil # 4.47 X10^3/uL (2.7-7.7); Neutrophil % 56.9 % (47-70); Platelet Count 249 K/mm3 (150-450); RBC Distribution Width CV 12.4 % (11.6-14.6); RBC Distribution Width SD 41.1 fl (35.1-43.9); Red Blood Count 4.52 M/mm3 (4.2-5.4); White Blood Count 7.9 K/mm3 (4.4-11.0)
[2024-03-28 20:44] LABS: Color, Urine Yellow (Yellow); Glucose, Dipstick Normal (Normal); Ketone-Dipstick Negative (Negative); Leukocyte Esterase-Dipstick 25 /ul (Negative); Nitrite-Dipstick Negative (Negative); Occult Blood-Urine Negative /ul (Negative); Protein-Dipstick Negative (Negative); Specific Gravity, Urine 1.015 (1.002-1.030); Urine Bilirubin Dipstick Negative (Negative); Urine Clarity Clear (Clear); Urine Urobilinogen Normal (Normal)
[2024-03-28 20:51] LABS: ALB/GLOB Ratio 1.1 RATIO (0.9-2.4); AST(SGOT) 10 U/L (15-37); Alanine Aminotransfer ALT/SGPT 16 U/L (13-56); Albumin, Serum 3.5 g/dL (3.2-5.0); Alkaline Phosphatase 55 U/L (45-117); Anion Gap 3 (5-15); BUN 9 mg/dL (7-18); BUN/Creat Ratio 13.5 RATIO (10-20); Calcium,Total 8.6 mg/dL (8.5-10.1); Chloride 107 mmol/L (98-107); Creatinine, Serum 0.66 mg/dL (0.55-1.02); EST Glomerular Filtration Rate 112 mL/min (>60); Est Glom Filt Rate - Afr Amer 136 mL/min (>60); Estimated Creatinine Clearance 100.85 ml/min; Globulin 3.3 g/dL (2.2-4.2); Glucose 88 mg/dL (74-106); Potassium 3.6 mmol/L (3.5-5.1); Protein, Total 6.8 g/dL (6.4-8.2); Sodium Level 140 mmol/L (136-145)
[2024-03-28 20:54] LABS: Internal QC Validated? YES +Cl - CLEAR BKGD; Pregnancy, Urine Negative Negative; Squamous Epithelial Cells - UA 0-5 SEEN /hpf (5-10)
[2024-03-28] MEDS: Loperamide 2 MG Capsule 4 MG PO (21:32)
[2024-03-28] MEDS: Mag Hydrox/Al Hydrox/Simeth 30 ML UDC PO (21:32)
[2024-03-28 21:36] VITALS: BP 120/60; PULSE 79; RESP 18; TEMP 36.7; O2SAT 97
== END 2024-03-28 21:37 | disposition home or self-care (01) ==
PROVIDERS: Emergency Provider Emergency Medicine; PCP Nurse Practitioner; Visit Provider Emergency Medicine
DX: R19.7 Diarrhea, unspecified (principal); N81.4 Uterovaginal prolapse, unspecified; R10.13 Epigastric pain; R39.15 Urgency of urination; F17.210 Nicotine dependence, cigarettes, uncomplicated; Z79.899 Other long term (current) drug therapy
CPT/HCPCS: 80053; 81001; 81025; 85025; 96361; 96374; 99283; J7040; A4216